=== PATIENT | female | born 1960 | race African-American/Black ===

== ENCOUNTER 2016-09-16 12:03 | Emergency (ER) | payer OTHER ==
--- NOTE | ~2016-09-16 | CR63 ---
[facility] A Service of [facility] & [facility] RADIOLOGY TEXT RESULTS PATIENT: ALIZE NEW LOCATION: [facility] : 64 UNIT #: [id number] AGE: [address]: Kathia Leary APRN SEX: F ORDER DR: [id number] [facility] [address] [facility]. [place], [place] [address] [id number] MR#: [id number] Acc #: [id number] NAME: ALIZE NEW : 1960 SEX: F STUDY DATE/TIME: 09/16/2016 13:31 UNIT: TX ROOM: STUDY DESCRIPTION: CR Chest 2 View Attending Physician: Kathia Leary A.P.R.N. Ordering Physician: Justin Acevedo M.D. Primary Care Physician: Es Martin A.P.R.N. MEDICAL IMAGING REPORT This report is preliminary unless electronic signature is present EXAM Chest 2 views 09/16/2016 1331 hours HISTORY 56-year-old woman with 2-week history of cough, shortness of air, running nose and swollen eyelids COMPARISON 03/27/2013 FINDINGS Upright PA and lateral views of the chest demonstrate normal heart size. The superior mediastinum is abnormal. There is abnormal large right paratracheal soft tissue density measuring approximately 7.7 x 4.2 cm with some deviation of the trachea from right to left new from 03/27/2013. Finding is concerning for mass or pathologic adenopathy. There is right hilar or soft tissue fullness likely an enlarged node measuring up to 2.5 cm. The lungs are clear and there are no effusions. IMPRESSION Abnormal chest film with new mediastinal widening and right paratracheal soft tissue mass or masses measuring up to 7.7 x 4.3 cm with enlarged right hilar node measuring 2.5 cm. Findings are concerning for a primary tumor mass or pathologic adenopathy. This is a clear change from 03/27/2013. Further evaluation with chest CT is recommended. Contrast administration would be helpful given the location of these findings. STAT * RESULT Dictated by... Jaylin Aragon M.D. [facility] A Service of [facility] & [facility] RADIOLOGY TEXT RESULTS PATIENT: ALIZE NEW LOCATION: [facility] : [birth year] UNIT #: [id number] AGE: [address]: Kathia Leary APRN SEX: F ORDER DR: THIS IS AN ELECTRONICALLY VERIFIED REPORT Jaylin Aragon M.D. at 09/16/2016 2:26 PM WILIAM/maciej TD: 09/16/2016 13:54 JOB #: [id number] MEDICAL IMAGING REPORT Page 1 of 1 COPY
[~2016-09-16 12:03] MED LIST: ACETAMINOPHEN PO; ALBUTEROL17 G1; ALBUTEROL17 GM INH; ASPIRIN PO; ASPIRINEC PO; AZITHROMYCIN250 MG PO; CELEXA PO; FERROUS SULFATE PO; FLEXERIL PO; FLEXERIL10 MG PO; FLONASE16 GM; IBUPROFEN800 MG PO; KEFLEX PO; KETOPROFEN PO; KLONOPIN; KLONOPIN PO; LORTAB 5/500 TA1 TA1 PO; LORTAB 7.5-5001 TAB PO; MEDROL DOSEPAK4 MG PO; MEDROL PO; MULTIVITAMIN W/1 TAB PO; ORUDIS75 M1 DOB; ORUDIS75 M1 PO; PREDNISONE PO; PRILOSEC PO; ROBITUSSIN-DM120 ML PO; TYLENOL #3 PO; ULTRAM PO; VICODIN 5/500 T1 TAB PO; WELLBUTRIN PO; ZITHROMAX PO; ZOLOFT PO
[2016-09-16 14:03] LABS: INFLUENZA A POS (NEG); INFLUENZA B NEG (NEG)
== END 2016-09-16 15:42 | disposition home or self-care (01) ==
LOC: CED 12:03 → CFTX 12:03
PROVIDERS: Nurse Practitioner
DX: J45.21 Mild intermittent asthma with (acute) exacerbation (principal); J10.1 Influenza due to other identified influenza virus with other respiratory manifestations; H10.9 Unspecified conjunctivitis; R91.8 Other nonspecific abnormal finding of lung field; E11.9 Type 2 diabetes mellitus without complications; I25.2 Old myocardial infarction; I10 Essential (primary) hypertension; F17.210 Nicotine dependence, cigarettes, uncomplicated; Z90.49 Acquired absence of other specified parts of digestive tract; Z88.0 Allergy status to penicillin
CPT/HCPCS: 71020; 82947; 87651; 87804; 99283

== ENCOUNTER → 2016-09-24 | Outpatient (CLI) | payer OTHER ==
[~2016-09-24] MED LIST changes: +DULOXETINE HCL60 M1 PO; +GABAPENTIN300 M2 PO; +LEXAPRO20 MG PO; +LIPITOR20 MG PO; +LOTREL 10-40 M1 EACH PO; +METFORMIN HCL500 M3 PO; +PROVENTIL INH0.5 ML NEB; +SEROQUEL XR200 MG PO
--- NOTE | ~2016-09-24 | CT55 ---
[facility] A Service of [facility] & [facility] RADIOLOGY TEXT RESULTS PATIENT: ALIZE [facility] [birth year] UNIT #: [id number] AGE: [address]: SHARLA WAITE APRN SEX: F ORDER DR: [id number] [facility] [address] [facility]. [place], [place] [address] [id number] O MR#: [id number] Acc #: [id number] NAME: ALIZE NEW : 1960 SEX: F STUDY DATE/TIME: 09/24/2016 9:34 UNIT: [facility] ROOM: STUDY DESCRIPTION: CT Chest W Con Attending Physician: Sharla Waite R.N. Referring Physician: Sharla Waite R.N. Ordering Physician: Sharla Waite R.N. Primary Care Physician: Sharla Waite R.N. MEDICAL IMAGING REPORT This report is preliminary unless electronic signature is present EXAM Chest CT with contrast. DATE OF STUDY 09/24/16 CLINICAL HISTORY Abnormal chest radiograph. PROCEDURE Axial contrast-enhanced chest CT with multiplanar reformats. This CT exam was performed with one or more of the following radiation dose reduction techniques: automatic exposure control, adjustment of mA and/or kV according to patient size, and iterative reconstruction. FINDINGS There is bulky mediastinal adenopathy. Severe nodes or clusters of nodes are seen, one in the anterior and right paratracheal region measuring 5.4 x 4 x 4 cm, anterior mediastinal mass measuring 5.3 x 4.7 x 3.4 cm, as well as a bulky subcarinal mass measuring 4.1 x 5.2 x 4.8 cm in addition to large right hilar and precarinal nodes. The adenopathy deforms, but does not occlude the right main and upper and lower lobe pulmonary arteries. There is relative sparing of the left hilum, though there is some mildly prominent AP window nodes. There is displacement of the aorta and great vessels, but no narrowing or encasement or aneurysmal dilatation. Minimal coronary atherosclerotic vascular calcifications are also seen. There is a small pericardial effusion. Images of the upper abdomen show no convincing retroperitoneal adenopathy and the liver and spleen, and visualized portions of the kidneys and pancreas are normal. [facility] A Service of [facility] & [facility] RADIOLOGY TEXT RESULTS PATIENT: ALIZE NEW LOCATION: [facility] : [birth year] UNIT #: [id number] AGE: [address]: SHARLA WAITE APRN SEX: F ORDER DR: There is no suspicious pulmonary nodule, though there is a small stellate pulmonary parenchymal density in the left upper lobe, on axial images measuring about 10 x 12 mm and about 10 mm in craniocaudal dimension. It is indeterminant, and was not present on the previous chest CT of 04/25/2007. There is spinal degenerative change, but no bone erosion or destruction. IMPRESSION Bulky right paratracheal, anterior mediastinal and precarinal and subcarinal and right hilar adenopathy. Findings are most suggestive of lymphoproliferative disease. No definite suspicious pulmonary nodule, though there is a small stellate indeterminant density in the left upper lobe anteriorly about 10 x 12 x 10 mm. Etiology unclear. Incidentally noted, small pericardial effusion, no upper abdominal retroperitoneal adenopathy. There are mildly prominent bilateral axillary lymph nodes, and the lymphoproliferative process is strongly favored. The mediastinal adenopathy could be easily biopsied with CT guidance. Dictated by... Jass Barboza M.D. THIS IS AN ELECTRONICALLY VERIFIED REPORT Jass Barboza M.D. at 09/28/2016 12:14 PM MAUREEN/jose TD: 09/24/2016 15:35 JOB #: [id number] MEDICAL IMAGING REPORT Page 1 of 1 COPY
[2016-09-24 10:50] LABS: POC - CREATININE 0.86 mg/dL (0.44-1.03); POC - GFR >60.0 mL/min (>60)
== END | disposition home or self-care (01) ==
LOC: CCAT 09-23 09:45
PROVIDERS: Nurse Practitioner
DX: R93.8 Abnormal findings on diagnostic imaging of other specified body structures (principal); R59.0 Localized enlarged lymph nodes; J98.4 Other disorders of lung
CPT/HCPCS: 71260; 82565; Q9967

== ENCOUNTER 2016-09-26 06:17 | Inpatient (IN) | payer OTHER ==
--- NOTE | ~2016-09-26 | CR72 ---
[facility] A Service of [facility] RADIOLOGY TEXT RESULTS PATIENT: ALIZE NEW LOCATION: [address] : [birth year] UNIT #: [id number] AGE: [address]: James Givens MD SEX: F ORDER DR: [id number] [place] [address] [facility]. [place], [place] [address] [id number] I MR#: [id number] Acc #: [id number] NAME: ALIZE NEW : 1960 SEX: F STUDY DATE/TIME: 10/01/2016 13:22 UNIT: [facility] ROOM: [facility] STUDY DESCRIPTION: CR Chest Single View Portable Attending Physician: James Givens M.D. Ordering Physician: Alta Diaz M.D. Primary Care Physician: Fanny Waite Aprn MEDICAL IMAGING REPORT This report is preliminary unless electronic signature is present EXAM Portable chest. HISTORY Shortness of breath for the past month accompanied by weakness. Mediastinal adenopathy. COMPARISON 09/26/2016 TECHNIQUE Single view of the chest was obtained. FINDINGS A single view of the chest again demonstrates extensive mediastinal adenopathy, greater to the right than to the left extending down to the right hilum. No new infiltrates are seen. There is minimal infiltrate at the right base, unchanged from previous examination. The vascular markings are normal. No progressive widening of the cardiac silhouette is seen. IMPRESSION Stable mediastinal adenopathy. Mild volume loss at the right lung base is unchanged. No new infiltrates are noted. Dictated by... Brian Bryant M.D. THIS IS AN ELECTRONICALLY VERIFIED REPORT Brian Bryant M.D. at 10/01/2016 4:37 PM RLF/tmw [facility] A Service [facility] RADIOLOGY TEXT RESULTS PATIENT: ALIZE NEW LOCATION: [address] : [birth year] UNIT #: [id number] AGE: [address]: James Givens MD SEX: F ORDER DR: TD: 10/01/2016 16:27 JOB #: [id number] MEDICAL IMAGING REPORT Page 1 of 1 COPY
--- NOTE | ~2016-09-26 | CO ---
Unit #: [id number] #: [id number] Patient: ALIZE NEW [id number] [place] [address] [facility]. [place], [place] [address] [id number] I MR#: [id number] NAME: ALIZE NEW ROOM: [facility] Age: 56 Sex: F Admission Date: 09/26/2016 : 1960 Attending Physician: Darlene Morillo M.D. Primary Care Physician: Fanny Waite Consultation Date: 10/05/2016 CONSULTATION REPORT REASON FOR CONSULTATION Followup. DISCUSSION Ms. Alize New is a 56-year-old female, seen in room 8, CCU-2 on 10/05/2016 at [facility]. The patient was receiving BiPAP, somewhat confused, unable to give coherent information. The patient had periods of agitation yesterday last night and sleep and received 2 doses of Xanax. Yesterday her Xanax was discontinued and changed to p.r.n. only, also stopped Seroquel which was 100 mg at bedtime. The patient was very drowsy yesterday. The patient's vital signs; pulse 97, blood pressure 155/77, oxygen saturation 97%. The patient and family would like to transfer her to [facility]. REVIEW OF SYSTEMS Complete review of systems unremarkable except as mentioned above. MENTAL STATUS EXAMINATION Vital signs; please see above. General appearance; the patient dressed in hospital attire, lying comfortably in bed, unable to give any coherent history. The patient has been breathing through BiPAP. Attention span and concentration, poor. Speech, orientation, mood and affect were unable to assess. Thought process, thought content, recent and remote memory were unable to assess. Language and fund of knowledge, unable to assess. Insight and judgment, impaired. DIAGNOSES Psychiatric: Major depressive disorder, recurrent, severe, F33.2; delirium, F05. ASSESSMENT/PLAN Advised to continue with current treatment at this time. Advised to resume Seroquel at a lower dosage 25 mg at bedtime and continue with p.r.n. Xanax. We will continue to follow. If needed, consider further adjustment of medication. Please feel free to call if any questions, telephone #[phone]. Dictated by... Kee Knowles/bob TD: 10/05/2016 23:23 Unit #: [id number] #: [id number] Patient: ALIZE NEW JOB #: [id number] CONSULTATION REPORT Page 1 of 1 X Sebas Horne MD X CONSULTATION REPORT
--- NOTE | ~2016-09-26 | CO ---
Unit #: [id number] #: [id number] Patient: ALIZE NEW [id number] [facility] [address] [facility]. [place], [place] [address] [id number] I MR#: [id number] NAME: ALIZE NEW ROOM: 474 Age: 56 Sex: F Admission Date: 09/26/2016 : 1960 Attending Physician: Darlene Morillo M.D. Primary Care Physician: Fanny Waite Consultation Date: 10/11/2016 CONSULTATION REPORT REASON FOR CONSULTATION Followup. DISCUSSION Ms. Alize Booth is a 56-year-old female, seen on 10/11/2016. The patient seen in room 474, bed 1 on 10/11/2016 at [facility]. The patient family was in the room. The patient was breathing through BiPAP, alert, awake. The patient seemed more sad, depressed, withdrawn. According to the family, they will try to wean her off from this and the hospitalist is involved. The patient slept good. No agitation. Compliant with medication. The patient's vital signs; temperature 97.5, pulse 76, respiratory rate 14, blood pressure 143/65, and oxygen saturation 90%. REVIEW OF SYSTEMS Complete review of system is unremarkable. MENTAL STATUS EXAMINATION General appearance; the patient dressed in hospital attire, breathing through BiPAP. Please see above for vital signs. Attention span and concentration, poor. Speech, slow. Oriented in self. Mood and affect, labile. Thought process, circumstantial. Thought content, guarded and paranoid, but denied any thoughts of harming self or others. Recent and remote memory, poor. Language, fair. Fund of knowledge, fair. Insight and judgment, fair to slightly impaired. DIAGNOSIS Psychiatric: Major depressive disorder, recurrent, severe, F33.2. ASSESSMENT/PLAN 1. Supportive psychotherapy and psychoeducation provided to the patient and family. 2. Educated about benefits and side effects of medication and course and prognosis of illness. 3. Advised to continue with current treatment and hospitalist is currently involved to make the patient comfortable. Please feel free to call if any questions, telephone #[phone]. Dictated by... SebasKee Napier/bob Unit #: [id number] #: [id number] Patient: ALIZE NEW TD: 10/12/2016 02:05 JOB #: [id number] CONSULTATION REPORT Page 1 of 1 X Sebas Horne MD CONSULTATION REPORT
--- NOTE | ~2016-09-26 | XA210 ---
[facility] A Service of [facility] & [facility] RADIOLOGY TEXT RESULTS PATIENT: ALIZE NEW LOCATION: [address] : [birth year] UNIT #: [id number] AGE: [address]: Darlene Morillo MD SEX: F ORDER DR: [id number] [place] [address] [address] [facility]. [place], [place] [address] [id number] I MR#: [id number] Acc #: [id number] NAME: ALIZE NEW : 1960 SEX: F STUDY DATE/TIME: 10/01/2016 10:21 UNIT: [facility] ROOM: [facility] STUDY DESCRIPTION: XA Venacavagram Superior Attending Physician: James Givens M.D. Ordering Physician: James Givens M.D. Primary Care Physician: Fanny Waite Aprn MEDICAL IMAGING REPORT This report is preliminary unless electronic signature is present PROCEDURE Attempted superior venacavagram and attempted superior vena cava stent placement. INDICATIONS 56-year-old female with history of facial and neck swelling and upper extremity swelling. 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 The superior vena cava stent placement was requested. The fluoroscopy time was 17.6 minutes. 2 fluoroscopic images were taken. Medications administered were 0.5 mg of IV Versed and 25 mcg of IV Fentanyl. Approximately 1 hour of conscious sedation time was directly supervised by Dr. Zamora and monitored by appropriately credentialed radiology nursing staff. PROCEDURE The risks, benefits, and alternatives of the procedure were discussed with the patient and informed consent was obtained. In the procedure room a time-out performed confirming correct patient and procedure. All elements of maximum sterile-barrier technique utilized according guidelines appropriate for the procedure. TECHNIQUE/FINDINGS Using ultrasound guidance the right common femoral vein was accessed using a 21-gauge micropuncture needle. Through this access and under fluoroscopic guidance using the modified Seldinger technique a 10-Yemeni sheath was advanced into the right common femoral vein. Next, through this access a angled glide catheter and Glidewire were advanced into the superior vena cava. There are multiple mediastinal masses distorting the upper portion of the superior vena cava. I was able to negotiate a [facility] A Service of [facility] RADIOLOGY TEXT RESULTS PATIENT: ALIZE NEW LOCATION: CICCU2 CICCU2-08 : 64 UNIT #: [id number] AGE: [address]: Darlene Morillo MD SEX: F ORDER DR: Glidewire into the upper portion of the superior vena cava but initially the glide catheter would not track across the Glidewire. Therefore the short 10-Yemeni sheath was removed and was exchanged for a longer sheath. The largest sheath available was 7-Yemeni. This sheath was advanced over the guidewire and all the way up to the lower portion of the SVC just below the level of the obstruction. Through the sheath I tried numerous times to manipulate a Glidewire and glide catheter past the obstruction using both the regular stiff Glidewire and the glidewire Advantage and multiple different catheters but was ultimately unsuccessful. I was able to advance a Glidewire into the right subclavian vein but the catheter would not cross the obstruction. The procedure was then terminated. The sheath was removed and hemostasis was achieved. The patient tolerated the procedure well without immediate complications. IMPRESSION Unsuccessful attempt at superior vena cava stent placement as described. I was unable to cross the obstruction in order to place a stent. Findings were discussed with Dr. Levi Tobias upon completion of the procedure. Dictated by... Catalino Zamora M.D. THIS IS AN ELECTRONICALLY VERIFIED REPORT Catalino Zamora M.D. at 10/02/2016 5:14 PM Art TD: 10/01/2016 17:38 JOB #: [id number] MEDICAL IMAGING REPORT Page 1 of 1 COPY
--- NOTE | ~2016-09-26 | CT2 ---
[facility] A Service [facility] RADIOLOGY TEXT RESULTS PATIENT: ALIZE NEW LOCATION: [facility] : [birth year] UNIT #: [id number] AGE: [address]: James Givens MD SEX: F ORDER DR: [id number] [place] [id number] [place], [place] [address] [id number] I MR#: [id number] Acc #: [id number] NAME: ALIZE NEW : 1960 SEX: F STUDY DATE/TIME: 09/27/2016 13:36 UNIT: [facility] ROOM: [facility] STUDY DESCRIPTION: CT Abd and Pelv W Cont Attending Physician: James Givens M.D. Ordering Physician: Enrique Valentin M.D., Ph.D. Primary Care Physician: Fanny Waite MEDICAL IMAGING REPORT This report is preliminary unless electronic signature is present EXAM CT abdomen and pelvis with contrast INDICATIONS Unexplained weight loss of 35 pounds in the past 4 to 5 months. Observation for malignancy. PROCEDURE Contrast-enhanced CT of the abdomen and pelvis The CT exam was performed with one or more of the following radiation dose reduction techniques: automatic exposure control, adjustment of mA and/or kV according to patient size, and iterative reconstruction. COMPARISON 12/27 related to FINDINGS Abdomen with contrast: Refer to chest CT from 09/24/2016 for thoracic findings. Liver, spleen, kidneys, adrenal glands unremarkable. Previous cholecystectomy. Moderate colonic stool burden. Appendix is normal. No abdominal adenopathy. Pelvis with contrast: No pelvic mass or adenopathy. No aggressive appearing bone lesion. IMPRESSION 1. No acute findings. 2. No evidence for abdominal or pelvic malignancy or adenopathy. [facility] A Service of [facility] RADIOLOGY TEXT RESULTS PATIENT: ALIZE NEW LOCATION: [facility] : 64 UNIT #: [id number] AGE: [address]: James Givens MD SEX: F ORDER DR: 3. Refer to chest CT from 09/24/2016 for thoracic findings. Dictated by... Jf Wilcox M.D. THIS IS AN ELECTRONICALLY VERIFIED REPORT Jf Wilcox M.D. at 09/28/2016 9:54 PM EARL/luis TD: 09/28/2016 08:03 JOB #: [id number] MEDICAL IMAGING REPORT Page 1 of 1 COPY
--- NOTE | ~2016-09-26 | CR72 ---
[facility] A Service of [facility] & [facility] RADIOLOGY TEXT RESULTS PATIENT: ALIZE NEW LOCATION: [place] [address] : [birth year] UNIT #: [id number] AGE: [address]: Darlene Morillo MD SEX: F ORDER DR: [id number] [facility] [address] [facility]. [place], [place] [address] [id number] I MR#: [id number] Acc #: [id number] NAME: ALIZE NEW : 1960 SEX: F STUDY DATE/TIME: 10/07/2016 7:40 UNIT: [facility] ROOM: [facility] STUDY DESCRIPTION: CR Chest Single View Portable Attending Physician: Darlene Morillo M.D. Ordering Physician: Darlene Morillo M.D. Primary Care Physician: Fanny Waite Aprn MEDICAL IMAGING REPORT This report is preliminary unless electronic signature is present EXAM Portable chest HISTORY Shortness of breath, right-sided pneumonia. FINDINGS An AP portable view is obtained. Heart size is stable. Left lung is clear. There is a Wallstent endoprosthesis in the superior vena cava. The right-sided pleural drain has been removed in the interim. There is no pneumothorax. There continues to be pleural fluid and volume loss in the right base albeit decreased. CONCLUSION 1. Interim removal of the right-sided pleural drain. No pneumothorax. 2. Decrease in right-sided pleural fluid and right basilar atelectasis compared with the patient's last study. 3. The Wallstent endoprosthesis appears in satisfactory position. Dictated by... Doug Knox M.D. THIS IS AN ELECTRONICALLY VERIFIED REPORT Doug Knox M.D. at 10/10/2016 9:17 AM LEI/eliz TD: 10/07/2016 08:40 JOB #: [id number] MEDICAL IMAGING REPORT Page 1 of 1 COPY
--- NOTE | ~2016-09-26 | CO ---
Unit #: [id number] #: [id number] Patient: ALIZE NEW [id number] [place], [place] [address] [id number] I MR#: [id number] NAME: ALIZE NEW ROOM: [facility] Age: 56 Sex: F Admission Date: 09/26/2016 : 1960 Attending Physician: Darlene Morillo M.D. Primary Care Physician: Fanny Waite Consultation Date: 10/03/2016 CONSULTATION REPORT REASON FOR CONSULTATION Depression and anxiety. HISTORY OF PRESENT ILLNESS Ms. Alize New is a 56-year-old female, seen on 10/03/2016 in CCU-2, bed 8 at [facility]. The patient dressed in hospital attire, receiving oxygen through nasal cannula, Oxymizer. The patient was pleasant, cooperative, able to answer questions appropriately. Reported having problem with depression and anxiety, but denied any suicidal or homicidal ideation. The patient has a good support system, recently diagnosed with cancer. The patient was admitted with acute respiratory failure and pneumonia. The patient was started on Lexapro yesterday and received Ativan p.r.n. Still having some periods of anxiety and agitation. PAST PSYCHIATRIC HISTORY Unremarkable for any history of any depression or anxiety, or any suicide attempt, or any inpatient or outpatient treatment. MEDICAL HISTORY Remarkable for history of acute respiratory failure, pneumonia, conjunctivitis, lymphadenopathy, left upper lobe mass, sepsis, COPD, hypertension, gastric ulcer, and remote history of polysubstance abuse. MEDICATION HISTORY The patient was started on Lexapro today at 10 mg daily. The patient is also on hydralazine, Zestril, Colace, MiraLax, Zofran, Solu-Medrol 80 mg q.8 hours, Xanax 0.5 mg t.i.d., Vistaril 25 mg t.i.d. Please refer to MAR for detail. FAMILY HISTORY AND SOCIAL HISTORY The patient has a good support system from family. No history of abuse. No history of any substance abuse recently. REVIEW OF SYSTEMS A complete review of systems is unremarkable. MENTAL STATUS EXAMINATION The patient's vital signs; pulse 107, respirations 12, blood pressure 158/74, and oxygen saturation 100%. General appearance; the patient dressed casually, lying comfortably in propped up position in bed, receiving oxygen through nasal cannula. Attention span and concentration, fair. Speech; regular rate, slow in volume and rate. Oriented in time, place, and person. Mood and affect; sad and dysphoric. Thought process, Unit #: [id number] #: [id number] Patient: ALIZE NEW coherent. Thought content; the patient denied any thoughts of harming self or others or any psychotic symptom. Recent and remote memory, fair. Language, intact. Fund of knowledge, fair. Insight and judgment, fair to slightly impaired. DIAGNOSES Psychiatric: Major depressive disorder, recurrent, severe, F33.2. Secondary diagnosis: Deferred. Medical diagnosis: Please refer to H and P. Stressors: Psychosocial stressor. ASSESSMENT AND PLAN 1. Supportive psychotherapy and psychoeducation provided to the patient. 2. Educated about benefits and side effects of medication and course and prognosis of illness. 3. Advised to continue with current medication. Agree at this time to continue with Lexapro, Vistaril, and Xanax. If needed, consider low dose of Zyprexa if the patient has those episodes of agitation. We will continue to follow. Please feel free to call if any questions, telephone #[phone]. Dictated by... Kee Knowles/bob TD: 10/04/2016 15:52 JOB #: [id number] CONSULTATION REPORT Page 1 of 1 X Sebas Horne MD CONSULTATION REPORT
--- NOTE | ~2016-09-26 | CT114 ---
[facility] A Service of [facility] RADIOLOGY TEXT RESULTS PATIENT: ALIZE NEW LOCATION: [facility] [id number] : [birth year] UNIT #: [id number] AGE: [address]: James Givens MD SEX: F ORDER DR: [id number] [facility] [address] [facility]. [place], [place] [address] [id number] MR#: [id number] Acc #: [id number] NAME: ALIZE NEW : 1960 SEX: F STUDY DATE/TIME: 09/27/2016 13:36 UNIT: [facility] ROOM: [facility] STUDY DESCRIPTION: CT Soft Tissue Neck W Cont Attending Physician: James Givens M.D. Ordering Physician: Enrique Valentin M.D., Ph.D. Primary Care Physician: Fanny Waite MEDICAL IMAGING REPORT This report is preliminary unless electronic signature is present EXAM CT neck soft tissues with contrast INDICATIONS Unexplained weight loss of 35 pounds in the past 4 to 5 months. Suspicion for malignancy. PROCEDURE Contrast-enhanced CT of the neck utilizing soft tissue technique. The CT exam was performed with one or more of the following radiation dose reduction techniques: automatic exposure control, adjustment of mA and/or kV according to patient size, and iterative reconstruction. COMPARISON: Chest CT from 09/24/2016 FINDINGS Scattered small to mildly prominent bilateral cervical chain lymph nodes. Index posterior left cervical chain node measures up to 1.3 cm. Parotid glands, submandibular glands unremarkable. There are a few tiny nodules in the thyroid gland. No appreciable abnormal mass effect. Abnormally prominent lymph nodes in the right supraclavicular region with an indexed node measuring up to 1.5 cm. Partially included large mediastinal mass in the right paratracheal region. There is a nonspecific lucency in the C3 vertebral body measuring up to 1.0 cm. Multilevel degenerative change in the cervical spine. IMPRESSION 1. Abnormally prominent right supraclavicular lymph nodes. There is also partially included large right paratracheal mediastinal mass. Refer the chest CT from 09/24/2016 for further details. STS. [facility] A Service of [facility] & [facility] RADIOLOGY TEXT RESULTS PATIENT: ALIZE NEW LOCATION: [facility] 57- : [birth year] UNIT #: [id number] AGE: [address]: James Givens MD SEX: F ORDER DR: 2. Scattered small to mildly prominent lymph nodes in both cervical chains are nonspecific. 3. Lucent lesion in the C3 vertebral body. Indeterminate, could represent metastatic disease or a benign lesion. 4. Consider PET scan for evaluation of full extent of malignant involvement. Dictated by... Jf Wilcox M.D. THIS IS AN ELECTRONICALLY VERIFIED REPORT Jf Wilcox M.D. at 09/28/2016 9:54 PM EARL/luis TD: 09/28/2016 08:07 JOB #: [id number] MEDICAL IMAGING REPORT Page 1 of 1 COPY
--- NOTE | ~2016-09-26 | FU ---
[facility] Nutrition Therapy DATE: 10/08/16 Patient: ALIZE SHARPE NEW Physician: JACQUIE [facility] Room/Bed: [address], Zip: [place] [address] Admit Date: 09/26/16 Date of : [birth year] Height: 4 11 Weight: 130 59 NUTRITION MONITORING/FOLLOW-UP: Reason: PT SEEN FOR FOLLOW-UP Assessment: PT ON CONTINUOUS BIPAP, REGULAR DIET. HOSPICE HAS BEEN CONSULTED, FAMILY HAS NOT MADE DECISION YET. PER RN AND CHART, PT NOTED TO HAVE [facility] [employer] APPETITE. RD TO REMAIN AVAILABLE UPON REQUEST. MEDICATIONS AND LABS REVIEWED. Intervention: 1. REGULAR DIET 2. ENSURE BID Monitoring, Evaluation and Goals: SEE PREVIOUS GOALS Recommendations: 1. ENCOURAGE PO INTAKE. CONSULT RD IF NEEDED. RD WILL F/U PER PROTOCOL. Respectfully, MAN FINN, TUBING SUPERVISOR ELIF BAZAN MS, RD, LD Food and Nutritional Services [facility] cc: client file
--- NOTE | ~2016-09-26 | CO ---
Unit #: [id number] #: [id number] Patient: ALIZE NEW [id number] [facility] [address] [facility]. [place], [place] [address] [id number] I MR#: [id number] NAME: ALIZE NEW ROOM: [facility] Age: 56 Sex: F Admission Date: 09/26/2016 : 1960 Attending Physician: Darlene Morillo M.D. Primary Care Physician: Fanny Waite Aprn Consultation Date: 10/06/2016 CONSULTATION REPORT REASON FOR CONSULTATION Followup. DISCUSSION Ms. Dowell is a 56-year-old female, seen in room CCU-2, bed 8 on 10/06/2016 at [facility]. The patient was receiving breathing through BiPAP machine. The patient reports able to sleep good, cooperative, still sad, depressed. Mood was irritable. The patient is tolerating medication fairly well, slept good with Seroquel 25 mg at bedtime. No agitation. The patient did not require any p.r.n. medication last night. The patient's vital signs; temperature 97.8, pulse 100, blood pressure 111/68, oxygen saturation 98%. The patient's history obtained from the nursing staff. Chart reviewed. The patient denied any suicidal or homicidal ideation. REVIEW OF SYSTEMS Complete review of systems unremarkable except as mentioned above. MENTAL STATUS EXAMINATION Vital signs; please see above. General appearance; the patient dressed in hospital attire, lying in a propped up position. Breathing through BiPAP. Attention span and concentration, poor. Speech, slow. Orientation in self and place. Mood and affect, sad and depressed. Thought process, circumstantial. Thought content, guarded. Denied any thoughts of harming self or others. Denied any hallucination. Recent and remote memory, fair to slightly impaired. Language, fair. Fund of knowledge, fair to slightly impaired. Insight and judgment, fair to slightly impaired. DIAGNOSES Psychiatric: Major depressive disorder, recurrent, severe, F33.2. ASSESSMENT AND PLAN Advised at this time to continue with current treatment. Advised to continue with Seroquel 25 mg at bedtime and continue with p.r.n. Xanax. If needed, consider further adjustment of medication. Please feel free to call if any questions, telephone #[phone]. Dictated by... Kee Knowles/bob TD: 10/08/2016 03:45 Unit #: [id number] #: [id number] Patient: ALIZE NEW JOB #: [id number] CONSULTATION REPORT Page 1 of 1 X Sebas Horne MD X CONSULTATION REPORT
--- NOTE | ~2016-09-26 | DS ---
Unit #: [id number] #: [id number] Patient: ALIZE NEW [id number] [address] [address] [id number] I MR#: [id number] NAME: ALIZE NEW ROOM: [facility] Age: 56 Sex: F Admission Date: 09/26/2016 : 1960 Discharge Date: 10/13/2016 Attending Physician: Darlene Morillo M.D. Primary Care Physician: Fanny Waite DISCHARGE SUMMARY REVISED REPORT ADDENDUM HOSPITAL COURSE Patient has remained in the hospital under comfort measures while family decided their course of action. There were several discussions regarding continuation of BiPAP. At this time, the patient would like to continue BiPAP on traditional BiPAP settings to which she was changed yesterday. Today, she is increasingly somnolent and confused. The plan is for inpatient hospice when bed is available. Upon discussion with daughterMarcela, today, the plan is if patient asks for BiPAP to reinitiate, and she does not, simply to leave it off. DISCHARGE MEDICATIONS 1. Morphine 4 mg IV q.4 hours scheduled with 2-4 mg IV q.1 hour p.r.n. 2. Ativan 1 mg IV q.4 hours scheduled with 1 mg IV q.1 hour p.r.n. 3. Robinul 0.2 mg q.1 hour p.r.n. DISCHARGE INSTRUCTIONS Patient can follow a regular diet if she so wishes. FOLLOWUP Further care per hospice. report type revised Dictated by... Darlene Morillo M.D. ART/johnathan TD: 10/12/2016 16:43 JOB #: [id number] Unit #: [id number] #: [id number] Patient: ALIZE NEW DISCHARGE SUMMARY Page 1 of 1 X Darlene Morillo MD X DISCHARGE SUMMARY
--- NOTE | ~2016-09-26 | CO ---
Unit #: [id number] #: [id number] Patient: ALIZE NEW [id number] [address] [address] [id number] I MR#: [id number] NAME: ALIZE NEW ROOM: [facility] Age: 56 Sex: F Admission Date: 09/26/2016 : 1960 Attending Physician: Darlene Morillo M.D. Primary Care Physician: Fanny Waite Aprn Consultation Date: 10/06/2016 CONSULTATION REPORT REASON FOR CONSULTATION Followup. DISCUSSION Ms. Alize New is a 56-year-old female. The patient interviewed, chart reviewed, and obtained information from nursing staff. The patient was having periods of agitation last night and received 2 p.r.n. dosage of Xanax. The patient was started on Seroquel 25 mg at bedtime, which was helpful. The patient is currently on Solu-Medrol 40 mg q.8 hourly and breathing through BiPAP. Still periods of some agitation, but denied any thoughts of harming self or others. Chart reviewed. Obtained information from nursing staff. REVIEW OF SYSTEMS Complete review of systems unremarkable. MENTAL STATUS EXAMINATION Vital signs; pulse 109, respirations 19, blood pressure 151/66, oxygen saturations 97%. General appearance, the patient dressed casually, lying in a propped up position, receiving breathing through BiPAP. Attention span and concentration, poor. Speech, slow. Oriented in self and place. Mood and affect, sad, dysphoric, flat. Thought process, circumstantial. Thought content, guarded. Denied any thoughts of harming self or others. Recent and remote memory, poor. Language, fair. Fund of knowledge, fair to poor. Insight and judgment, fair to poor. DIAGNOSES Psychiatric: Major depressive disorder, recurrent, severe, F33.2. ASSESSMENT AND PLAN 1. Supportive psychotherapy and psychoeducation provided to the patient. 2. Advised to continue with current medication. If needed, consider further adjustment of medication. The patient is receiving Seroquel 25 mg scheduled and Xanax p.r.n. for agitation and severe anxiety. We will continue to follow. Please feel free to call if any questions, telephone #[phone]. Dictated by... Kee Knowles/bob TD: 10/08/2016 03:53 Unit #: [id number] #: [id number] Patient: ALIZE NEW JOB #: [id number] CONSULTATION REPORT Page 1 of 1 X Sebas Horne MD X CONSULTATION REPORT
--- NOTE | ~2016-09-26 | A ---
[facility] Nutrition Therapy DATE: 10/04/16 Patient: ALIZE ANNEMARIE NEW Physician: JACQUIE Address: [address] [place] [address] Room/Bed: [address], Zip: [place] [address] Admit Date: 09/26/16 Date of : [birth year] Height: 4 11 Weight: 132 60 NUTRITIONAL ASSESSMENT: REASON: SEEING PT FOR LOS + RN REPORT RE: POOR PO INTAKE. DX: ACUTE RESPIRATORY FAILURE, PNA PMH: COPD, GERD, DEPRESSION, ANXIETY, HTN, LUNG CANCER Anthropometrics: 4'11", WT: 132# (60 KG) BMI 26 Labs: GLU 153 CL- 94 CREAT 0.5 Meds: SOLU-MEDROL, NACL, XANAX, MAXIPIME, LEXAPRO, ZESTRIL, COLACE, MIRALAX, ZOFRAN, PROTONIX I/O & Bowel function: 1640/2126. LAST BM 09/29 Skin Integrity: WNL Assessment: SEEING PT FOR LOS. CHART REVIEWED, EVENTS NOTED. RN REPORTED THAT PT HAS HAD POOR APPETITE OVER LAST FEW DAYS AND CONSUMED 0% OF HER BREAKFAST THIS MORNING. PT IS CURRENTLY RECEIVING REGULAR DIET. RD ATTEMPTED TO SPEAK WITH PT AT BEDSIDE. PT WAS VERY LETHARGIC AND RESPONDED WITH SMALL PHRASES. RD OFFERED TO ORDER ENSURE SUPPLEMENTS AND PT AGREED. PER PT, SHE HAS LOST SOME WEIGHT OVER LAST FEW MONTHS, EXACT AMOUNT UNKNOWN. RD WILL REMAIN AVAILABLE. Dx: INADEQUATE ORAL INTAKE R/T CURRENT CONDITION AND POOR APPETITE AEB <50% OF MEALS TOLERATED, PER RN REPORT. Intervention: 1. REGULAR DIET 2. ENSURE CHOCOLATE BID. Monitoring, Evaluation and Goals: 1. ORAL INTAKE; CONSUME >50% OF ALL MEALS AND SUPPLEMENTS. 2. WEIGHTS; PROMOTE MAINTAINENCE OF HEALTHY WEIGHT 3. LABS; WNL 4. GI; PROMOTE REGULAR GI FUNCTION (LAST BM 09/29/16) Recommendations: 1. PLEASE ORDER ENSURE CHOCOLATE BID. 2. ENCOURAGE ADEQUATE PO INTAKE. [facility] Nutrition Therapy DATE: 10/04/16 Patient: ALIZE ANNEMARIE NEW Physician: JACQUIE Address: [address] [place] [address] Room/Bed: [address], Zip: [place] [address] Admit Date: 09/26/16 Date of : [birth year] Height: 4 11 Weight: 132 [address] RD WILL F/U PER PROTOCOL. PT IS AT MODERATE NUTRITIONAL RISK. Respectfully, MAN FINN, SCHOOL SECRETARY ELIF BAZAN MS, RD, LD Food and Nutritional Services [facility] cc: client file
--- NOTE | ~2016-09-26 | CO ---
Unit #: [id number] #: [id number] Patient: ALIZE NEW [id number] [address] [address] [id number] I MR#: [id number] NAME: ALIZE NEW ROOM: [facility] Age: 56 Sex: F Admission Date: 09/26/2016 : 1960 Attending Physician: Darlene Morillo M.D. Primary Care Physician: Fanny Waite Requesting Physician: Alta Diaz M.D. CONSULTATION REPORT REASON FOR CONSULT Chest tube management. HISTORY OF PRESENT ILLNESS Ms. Alize New is a 56-year-old female who is admitted to the emergency room with acute hypoxic respiratory failure and bilateral upper extremity edema and facial edema. She has history of COPD, anxiety, depression and hypertension. Patient reports having an emergency room visit on 09/16/16, for which she underwent a CT scan, which revealed extensive lymphadenopathy and possible SVC syndrome. She was going to be evaluated as an outpatient; however, began to have edema in both upper extremities and facial edema and returned back to the emergency room with trouble breathing. She was admitted. She underwent SVC wall stent placement on 10/01/16 under the direction of Dr. Knox. She underwent a biopsy on September 29, 2016 under the direction of Dr. Catalino Zamora, which proved positive after immunosuppressive stains for neuroendocrine carcinoma, stage III. During her admission this morning, she developed a right pneumothorax. Dr. Diaz was consulted for placement of chest tube. He placed a chest tube, and Dr. Dallas has been consulted to follow the chest tube for management. PAST MEDICAL HISTORY 1. COPD. 2. History of illicit drug use, which was methamphetamine. 3. SVC syndrome. 4. Thrombocytopenia with a HIT panel pending. 5. Delirium. 6. Hypertension. 7. Acute hypercarbic and hypoxic respiratory failure. PAST SURGICAL HISTORY The patient's surgeries in the past include a cholecystectomy, tonsillectomy and an SVC stent placement. 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 She is a Gnosticism but yet has signed a consent form on the chart that she will receive blood. Her daughter, Brionna, is the contact center team lead for information regarding patient. patient is currently on BiPAP during the interview. REVIEW OF SYSTEMS Unable to obtain related to BiPAP. Unit #: [id number] #: [id number] Patient: ALIZE NEW PHYSICAL EXAMINATION VITAL SIGNS: Temperature is 98.9, heart rate 77, respiratory rate 20, blood pressure 162/95. GENERAL APPEARANCE: The patient is awake and responds to her name. Family at bedside. NEUROLOGIC/PSYCHIATRIC: She has no gross neuro deficits noted. She is able to move all extremities and nod her head appropriately. HEENT: She is normocephalic. Her facial edema is receding. EXTREMITIES: Warm and dry. She does have some upper extremity edema bilaterally. Otherwise, her pulses are intact. There is no clubbing and no ulcer. NECK: Her neck is supple. There is a palpable thyroid. There is no palpable lymphadenopathy. RESPIRATORY: Lungs bilaterally have rhonchi. No rales or wheezes. CARDIOVASCULAR: S1, S2 without rub, without murmur. No S3 or S4 and no peripheral edema in the lower extremities. ABDOMEN: Her abdomen is large, round, soft. Bowel sounds are positive. Nontender. No hepatosplenomegaly. DIAGNOSTICS LABORATORY: BUN 15, creatinine 0.4, sodium 135, potassium 3.8. Platelets 184, WBC 28.3, hemoglobin 12.1, hematocrit 38.4. IMPRESSION 1. Right pneumothorax status post chest tube placement by Dr. Diaz. 2. Neuroendocrine carcinoma, aggressive in type, cared for by Dr. Valentin and Dr. Tobias. 3. SVC syndrome status post wall stent placement on 10/01/16 under the direction of Dr. Knox. PLAN We will monitor her chest tube. At present there is no air leak and minimal drainage. There is a tiny residual apical pneumothorax laterally following chest tube placement. Will order chest x-ray for tomorrow morning. Dictated by... Gina No A.P.R.N. for Kee DUFF/dereje TD: 10/05/2016 12:20 JOB #: [id number] CONSULTATION REPORT Page 1 of 1 X Gina No APRN CONSULTATION REPORT
--- NOTE | ~2016-09-26 | HP ---
Unit #: [id number] #: [id number] Patient: ALIZE NEW [id number] [address] [facility]. [place], [place] [address] [id number] I MR#: [id number] NAME: ALIZE NEW ROOM: [address] Age: 56 Sex: F Admission Date: 09/26/2016 : 1960 Attending Physician: Vane Malin M.D. Primary Care Physician: Fanny Waite Aprn HISTORY AND PHYSICAL CHIEF COMPLAINT Shortness of air. HISTORY OF PRESENT ILLNESS The patient is a 56-year-old female with a past medical history of COPD with continued tobacco abuse, depression, anxiety, hypertension, gastric ulcer, remote polysubstance abuse who presented to the emergency department for evaluation of the above. The patient states that she has had at least a ten day history of increasing shortness of breath and initially productive cough. She states that she has had chills and undocumented fever. She also reports chest tightness in association with cough. She has had drainage from her eyes. She has had nausea and vomiting. She reports constipation. She states that she has lost about 35 pounds over the past 4-5 months. The patient was seen in the emergency department at [facility] on 09/16/2016. She was told that she had a lung mass and to followup with her primary care physician. She apparently saw her PCP and a CT of the chest with contrast was ordered. CT from 09/24/2016 showed bulky paratracheal, mediastinal, precarinal, subcarinal, right hilar adenopathy concerning for lymphoproliferative disease. A lung nodule was also noted. The patient returns today for persistent symptoms. Temperature was 98.7, pulse 109, respirations 22, oxygen saturation initially 95% on 2 L; however, oxygen saturation dropped to 86% during the course of her evaluation in the emergency department. A chest x-ray was done and showed bibasilar infiltrates. She was given Levaquin, as well as Solu-Medrol in the emergency department. She is being admitted to [facility] for evaluation and further treatment. PAST MEDICAL HISTORY 1. Admission to [facility] 12/28/2007 through 01/01/2008 for a cholecystitis. She underwent cholecystectomy during that admission. 2. Hypertension. 3. Anxiety and depression. 4. Gastric ulcers. 5. COPD not on home oxygen, not followed by a butt trimmer. 6. History of myocardial infarction. The patient denies ever having a cardiac catheterization. She did have a stress test in 04/2007 that was read as "probably normal." Ejection fraction was 56%. Unit #: [id number] #: [id number] Patient: ALIZE NEW PAST SURGICAL HISTORY 1. Cholecystectomy. 2. Tonsillectomy. SOCIAL HISTORY The patient smokes a half pack of cigarettes daily. She reports occasional alcohol use, as well as occasional marijuana use. The patient is a [employer]. She does not want any blood products. Her code status is a Do Not Resuscitated. REVIEW OF RECORDS Indicates that the patient's drug screen was positive for cocaine back in 12/2007. She is unemployed. FAMILY HISTORY Notable for her mother being an alcoholic. Her maternal grandmother had colon cancer. Her dad had an unknown malignancy. ALLERGIES Penicillin. HOME MEDICATIONS There is not currently a med rec. Home medications will need to be reviewed and verified. REVIEW OF SYSTEMS A complete review of systems is negative except as indicated in the HPI. PHYSICAL EXAMINATION VITAL SIGNS: Temperature is 98.7, pulse 109, respirations 22, blood pressure 130/80, oxygen saturation 95% on 2 L, dropped to 86% during the course of her evaluation. GENERAL: The patient is an -[place] female who is awake and alert, in no acute distress. HEENT: The head is atraumatic. There is purulent drainage from the right eye with facial swelling. NECK: The patient does have cervical lymphadenopathy. Trachea is midline. CARDIOVASCULAR: Regular rate and rhythm. LUNGS: Demonstrates scattered wheezes and rhonchi. Breathing is not labored with conversation. ABDOMEN: Soft and nontender with bowel sounds present in all four quadrants. EXTREMITIES: Nontender with no pedal edema. NEUROLOGIC: The patient is awake and alert. She follows commands. PSYCH: Mood and affect are normal. The patient is cooperative. SKIN: Skin of examined areas is warm and dry. DIAGNOSTIC STUDIES CARDIOLOGY STUDIES: EKG showed sinus tachycardia with a rate of 102 BPM. IMAGING STUDIES: Chest x-ray shows bibasilar infiltrates. CT of the chest with contrast from 09/24/2016 showed bulky right paratracheal, anterior mediastinal, precarinal, subcarinal and right hilar adenopathy concerning for lymphoproliferative disease. A small stellate indeterminant density in the left upper lobe was also noted, as well as a small pericardial effusion. Bilateral Unit #: [id number] #: [id number] Patient: ALIZE NEW axillary lymph nodes are mildly prominent. LABORATORY STUDIES: Complete blood count notable for white blood cell count of 11.4. Troponin is less than 0.05. Comprehensive metabolic panel notable for chloride of 97, BNP is 6, lactic acid 1.4. ASSESSMENT The patient is a 56-year-old female with: 1. Acute respiratory failure, hypoxic. 2. Pneumonia, community acquired. 3. Conjunctivitis. 4. Lymphadenopathy concerning for lymphoproliferative disease. 5. Left upper lobe mass. 6. Sepsis with an initial lactic acid of 1.4. 7. COPD with continued tobacco abuse. 8. Depression and anxiety. 9. Hypertension. 10. Gastric ulcer. 11. Remote polysubstance abuse. PLAN 1. Admit to an intermediate level. 2. Healthy heart diet. 3. Supplemental oxygen. 4. Blood cultures x2. 5. Sputum culture and sensitivity. 6. Procalcitonin level. 7. Levaquin IV for community acquired pneumonia pending further workup. 8. DuoNeb q.4 hours. 9. Solu-Medrol 80 mg IV q.12 hours. 10. Serial cardiac enzymes. 11. Sepsis protocol with repeat lactic acid. 12. Normal saline at 75 mL an hour. 13. Vigamox ophthalmic one drop in eyes t.i.d. 14. Check urinalysis and urine tox screen. 15. Consult Dr. Valentin regarding lymphadenopathy, concerning for lymphoproliferative disease. 16. Repeat labs in the morning. 17. SCDs for DVT prophylaxis. 18. Protonix for GI prophylaxis since the patient will be on Solu-Medrol. 19. Additional workup and consultants based on above. 20. Regarding code status, the patient is a Do Not Resuscitate. Dictated by Kee Ramires TD: 09/26/2016 14:14 JOB #: [id number] Unit #: [id number] #: [id number] Patient: ALIZE NEWRICIA HISTORY AND PHYSICAL Page 1 of 1 X Vane Malin MD X HISTORY AND PHYSICAL
--- NOTE | ~2016-09-26 | EKG ---
PATIENT: ALIZE NEW UNIT #: [id number] Ventricular Rate: 102 BPM Atrial Rate: 102 BPM P-R Interval: 118 ms QRS Duration: 68 ms Q-T Interval: 352 ms QTC Calculation(Bezet): 458 ms P Jackson: 73 degrees Calculated R Jackson: 95 degrees Calculated T Jackson: 80 degrees Diagnosis Line: Sinus tachycardia Diagnosis Line: Rightward axis Diagnosis Line: Borderline ECG Diagnosis Line: When compared with ECG of 27-MAR-2013 21:07, Diagnosis Line: No significant change was found Diagnosis Line: Confirmed by BONIFACIO TAM MD ([id number]) on Diagnosis Line: 09/28/2016 3:16:04 PM INTERPRETING MD: ANEL PENA
--- NOTE | ~2016-09-26 | TOC ---
Unit #: [id number] #: [id number] Patient: ALIZE NEW [id number] [address] [address] [id number] I MR#: [id number] NAME: ALIZE NEW ROOM: [facility] Age: 56 Sex: F Admission Date: 09/26/2016 : 1960 Attending Physician: Darlene Morillo M.D. Primary Care Physician: Fanny Waite TRANSFER OF CARE SUMMARY ADDENDUM PRINCIPAL DIAGNOSES 1. Acute hypercapnic/hypoxic respiratory failure. 2. Newly diagnosed small cell lung cancer, aggressive, stage 3B. 3. Severe pulmonary hypertension. 4. Acute exacerbation of chronic obstructive pulmonary disease. 5. Left upper lobe healthcare-associated pneumonia. 6. Superior vena cava syndrome, status post stenting. 7. Thrombocytopenia. 8. Normocytic anemia. 9. Hypertension. 10. Right pleural effusion. PROCEDURES 1. SVC stenting. 2. CT scan of the chest revealing a left upper lobe infiltrate. There is significant diffuse supraclavicular mediastinal adenopathy. 3. Left upper extremity venous Doppler which is negative for DVT. HOSPITAL COURSE Since last dictation, following SVC stenting, unfortunately patient has had respiratory decline. Initially, she was maintained on BiPAP p.r.n. only but over the course of the last 48 hours has required almost continuous BiPAP therapy for maintenance of oxygen saturation. She has also required increased oxygen support on the BiPAP itself. Discussions regarding goals of care have been had throughout the week with the patient and her daughters, particularly given the fact that her underlying malignancy cannot be adequately treated with her declining respiratory status. At this point, the patient is opting for hospice and comfort measures only. Still awaiting hospice evaluation later today with discharge plans as determined appropriate by them and in agreement with patient and family. DISCHARGE CONDITION Actively dying. DISCHARGE STATUS Discharge per hospice recommendations. DISCHARGE MEDICATIONS 1. Roxanol 20 mg/mL 0.25 mL sublingual q.1 hour p.r.n. for pain or shortness of breath. 2. Ativan Intensol 2 mg/mL, 0.25 mL sublingual q.1 hour p.r.n. for Unit #: [id number] #: [id number] Patient: ALIZE NEW anxiety. DISCHARGE INSTRUCTIONS The patient is to follow a regular diet if she so wishes. Follow up per hospice care. Dictated by... Darlene Morillo M.D. ART/leda TD: 10/09/2016 13:42 JOB #: [id number] TRANSFER OF CARE SUMMARY Page 1 of 1 X Darlene Morillo MD X TRANSFER OF CARE SUMMARY
--- NOTE | ~2016-09-26 | CO ---
Unit #: [id number] #: [id number] Patient: ALIZE NEW [id number] [address] [place], [place] [address] [id number] I MR#: [id number] NAME: ALIZE NEW ROOM: 572 Age: 56 Sex: F Admission Date: 09/26/2016 : 1960 Attending Physician: James Givens M.D. Primary Care Physician: Fanny Waite Consultation Date: 09/27/2016 CONSULTATION REPORT HISTORY OF PRESENT ILLNESS The patient is a very pleasant 56-year-old lady with history of COPD and tobacco abuse, who has been admitted with 10-day history of increasing shortness of breath and productive cough. She was seen in the emergency room at [facility] on 09/16/2016, and she was found to have bulky lymphadenopathy on CT scan of the chest. There was extensive paratracheal mediastinal precarinal and subcarinal lymphadenopathy. The patient was supposed to follow up with the primary care physician, but now she is admitted with progressive symptoms with progressive shortness of air. She is currently on oxygen supplementation. She is also getting bronchodilator therapy. The patient has facial swelling as well as visible bilateral preauricular lymphadenopathy as well as cervical and supraclavicular swelling, concerning for superior vena cava syndrome or lymph edema. The patient is now being referred to Oncology for further workup and management. PAST MEDICAL HISTORY Chronic obstructive pulmonary disease, tobacco abuse, anxiety, depression, hypertension, gastric ulcer, remote history of polysubstance abuse. PAST SURGICAL HISTORY Cholecystectomy and tonsillectomy. SOCIAL HISTORY The patient lives with her mother. She takes care of her. Her mother is blind. The patient smokes half a pack per day. The patient is a Jehovah Witness. She does not want any blood products. Currently, her code status is do not resuscitate, but she is reconsidering that at this point. The patient is unemployed. FAMILY HISTORY Remarkable for alcoholism and colon cancer in her maternal grandmother. Her dad just recently in 05/2016 from complications of heart disease. ALLERGIES Penicillin. HOME MEDICATION Currently that is not available. REVIEW OF SYSTEMS CONSTITUTIONAL: Poor appetite, and significant weight loss. The patient has lost about 35 pounds of weight over the last 4 to 5 months. She attributed this to grieving because of her father's . Unit #: [id number] #: [id number] Patient: ALIZE NEW EYES: Patient denies any visual symptoms. EARS, NOSE, AND THROAT: No difficulties with hearing. No symptoms of rhinitis or sore throat. CARDIOVASCULAR: Patient denies chest pains, palpitations, orthopnea, or paroxysmal nocturnal dyspnea. RESPIRATORY: Progressive shortness of air, cough. GASTROINTESTINAL: No nausea, vomiting, diarrhea, constipation, abdominal pain, hematochezia or melena. GENITOURINARY: No urinary hesitancy or dribbling. No nocturia or urinary frequency. No abnormal urethral discharge. MUSCULOSKELETAL: No myalgias or arthralgias. NEUROLOGIC: No chronic headaches, no seizures. Patient denies numbness, tingling or weakness. PSYCHIATRIC: Patient denies problems with mood disturbance. No problems with anxiety. ENDOCRINE: No excessive urination or excessive thirst. DERMATOLOGIC: Patient denies any rashes or skin changes. ALLERGIC/IMMUNOLOGIC: Denies any symptoms. HEMATOLOGIC/LYMPHATIC: Denies any symptoms. PHYSICAL EXAMINATION GENERAL: Patient appears well developed, well nourished, and healthy. Personality: Pleasant and cooperative. Mental status: Alert and oriented. Stature: ECOG performance score 0. VITAL SIGNS: Temperature 98.7, pulse 109, respiratory rate 22, blood pressure 130/80, oxygen saturation 95% on 2 L. HEENT: Examination of head, eyes, ears, nose and throat is unremarkable except for the patient has facial swelling. HEMATOLOGIC/LYMPHATIC: There is a palpable preauricular and parotid swelling concerning for lymphadenopathy. The patient also had supraclavicular lymphadenopathy, more prominent on the right than the left. CARDIOVASCULAR: S1 and S2 regular. Normal rate without any murmurs or gallops. RESPIRATORY: Chest symmetrical, normal, breath sounds equal, bilaterally symmetrical. No rales or rhonchi, and no dullness to percussion. ABDOMEN/GASTROINTESTINAL: Abdomen is soft, nontender, and without palpable masses. No hepatosplenomegaly. EXTREMITIES: Peripheral pulses are normal. There is no edema, cyanosis, clubbing or significant varicosities. NEUROLOGICAL: Patient is alert and oriented x3. Cranial nerves II-XII are grossly intact. Motor strength is 5/5 and equal in all four extremities. Deep tendon reflexes are +2/4 and equal bilaterally. MUSCULOSKELETAL: No evidence of joint swelling, bone tenderness or muscle tenderness is appreciable. SKIN: No lesions or rashes. PSYCHIATRIC: No delusions or hallucinations, no loose associations, no flight of ideas, no tangentiality. Affect is appropriate. No psychomotor slowing or agitation. Eye contact is appropriate. DIAGNOSTIC STUDIES IMAGING STUDIES: CT scan of the chest shows extensive bulky paratracheal mediastinal, precarinal, and subcarinal lymphadenopathy. ASSESSMENT AND PLAN Ms. New is a very pleasant 56-year-old lady, who presents with progressive shortness of air and extensive lymphadenopathy. This is very concerning for malignancy. Most likely, lymphoproliferative disorder, but given her smoking history, small cell lung cancer cannot be excluded as Unit #: [id number] #: [id number] Patient: ALIZE NEW. I spent a long time discussing this with the patient. My plan is to proceed with completion of the staging workup with CT scan of the head and neck and abdomen and pelvis with IV contrast. She already had a CT scan of the chest. We will also be asking for CT-guided biopsy of a lymph node mass. I think it will be very easily accessible because there is a palpable lymphadenopathy in the neck area. I am going to ask for lymphoma protocol, including flow cytometry. I discussed the suspected diagnosis and diagnostic plan with the patient at length and answered her questions to her satisfaction. I would like to thank Dr. Malin for giving us the opportunity to be involved in the care of this pleasant patient. Dictated by... Enrique Valentin M.D., Ph.D. MIKE/bob TD: 09/28/2016 12:23 JOB #: [id number] CONSULTATION REPORT Page 1 of 1 X X CONSULTATION REPORT
--- NOTE | ~2016-09-26 | CO ---
Unit #: [id number] #: [id number] Patient: ALIZE NEW [id number] [address] [address] [id number] I MR#: [id number] NAME: ALIZE NEW ROOM: 474 Age: 56 Sex: F Admission Date: 09/26/2016 : 1960 Attending Physician: Darlene Morillo M.D. Primary Care Physician: Fanny Waite Consultation Date: 10/13/2016 CONSULTATION REPORT REASON FOR CONSULTATION Followup. DISCUSSION Ms. Zhu is a 56-year-old female, seen in room 474, bed 1 on 10/13/2016 in [facility]. The patient's 2 daughters were in the same room. The patient was breathing normally, has Oxymizer, receiving oxygen but no BiPAP. The patient slept good, received p.r.n. Ativan for agitation. No anxiety. Mood; sad, depressed, withdrawn, flat affect, guarded, still confused. Vital signs; pulse 108, blood pressure 150/87, and oxygen saturation 100%. REVIEW OF SYSTEMS Complete review of systems unremarkable. MENTAL STATUS EXAMINATION General appearance; the patient is moderately obese, dressed casually, lying in a propped up position in bed, receiving oxygen through Oxymizer. Attention span and concentration, fair. Speech, slow in volume with long pauses. Oriented in self and place. Mood and affect; sad, dysphoric, flat. Thought process, circumstantial. Thought content; guarded, unable to answer question about suicidal or homicidal ideation. Recent and remote memory, poor. Language, fair. Fund of knowledge, fair. Insight and judgment, fair to slightly impaired. DIAGNOSIS Psychiatric: Major depressive disorder, recurrent, severe, F33.2. ASSESSMENT/PLAN Supportive psychotherapy and psychoeducation provided to patient and family. The patient unable to comprehend much at this time. The patient will be going to hospice. At this time, providing comfort care. The patient has a p.r.n. medication available. If needed, consider further adjustment of medication. Please feel free to call if any questions, telephone #[phone]. Dictated by... Kee Knowles/bob TD: 10/13/2016 23:48 JOB #: [id number] Unit #: [id number] #: [id number] Patient: ALIZE NEW CONSULTATION REPORT Page 1 of 1 X Sebas Horne MD CONSULTATION REPORT
--- NOTE | ~2016-09-26 | XA55 ---
[facility] A Service of [facility] & [facility] RADIOLOGY TEXT RESULTS PATIENT: ALIZE NEW LOCATION: [facility] 572-01 : [birth year] UNIT #: [id number] AGE: [address]: James Givens MD SEX: F ORDER DR: [id number] [address] [place], [place] [address] [id number] I MR#: [id number] Acc #: [id number] NAME: ALIZE NEW : 1960 SEX: F STUDY DATE/TIME: 09/29/2016 14:29 UNIT: [facility] ROOM: [facility] STUDY DESCRIPTION: XA BX Lymph Node Superficial Attending Physician: James Givens M.D. Ordering Physician: Enrique Valentin M.D., Ph.D. Primary Care Physician: Fanny Waite R.N. MEDICAL IMAGING REPORT This report is preliminary unless electronic signature is present EXAM Ultrasound guided biopsy of a right supraclavicular lymph node. INDICATION 56-year-old female with history of multiple mediastinal masses and multiple abnormally enlarged lymph nodes in her neck. These are all suspicious for malignancy and biopsy was requested. The risks, benefits and alternatives of the procedure were discussed with the patient and informed consent was obtained. Procedure room a time-out was performed confirming correct patient and procedure. All elements of maximum sterile-barrier technique utilized according to guidelines appropriate for the procedure. TECHNIQUE/FINDINGS Ultrasound of the right supraclavicular region demonstrated multiple hypoechoic enlarged lymph nodes which were abnormal in appearance. The skin overlying the largest node was prepped and draped in the usual sterile fashion. 1% lidocaine utilized to anesthetize the skin and underlying subcutaneous tissues. Next under ultrasound guidance, 3 core biopsies of the lymph node were obtained with an 18-gauge needle. Two were sent in formalin and one was sent in Cyrus's. Needle was removed, and a sterile dressing was applied. No immediate complications. IMPRESSION Technically successful ultrasound-guided right supraclavicular lymph node core biopsy. Dictated by... Catalino Zamora M.D. STS. [facility] A Service of [facility] & [facility] RADIOLOGY TEXT RESULTS PATIENT: ALIZE NEW LOCATION: [facility]- : [birth year] UNIT #: [id number] AGE: [address]: James Givens MD SEX: F ORDER DR: THIS IS AN ELECTRONICALLY VERIFIED REPORT Catalino Zamora M.D. at 09/30/2016 7:15 AM MADDISON/jose TD: 09/30/2016 00:11 JOB #: [id number] MEDICAL IMAGING REPORT Page 1 of 1 COPY
--- NOTE | ~2016-09-26 | CR72 ---
[facility] A Service of [facility] RADIOLOGY TEXT RESULTS PATIENT: ALIZE NEW LOCATION: [place] [address] : [birth year] UNIT #: [id number] AGE: [address]: Darlene Morillo MD SEX: F ORDER DR: [id number] [facility] [address]. [place], [place] [address] [id number] I MR#: [id number] Acc #: [id number] NAME: ALIZE NEW : 1960 SEX: F STUDY DATE/TIME: 10/08/2016 7:42 UNIT: [facility] ROOM: [facility] STUDY DESCRIPTION: CR Chest Single View Portable Attending Physician: Darlene Morillo M.D. Ordering Physician: Chris Thakkar M.D. Primary Care Physician: Fanny Waite Aprn MEDICAL IMAGING REPORT This report is preliminary unless electronic signature is present EXAM Portable chest. HISTORY Status post chest tube, short of air. Lung cancer. Right-side chest tube. Continuous BiPAP. TECHNIQUE AP radiograph of the chest is presented. COMPARISON 10/07/2016 FINDINGS Right paratracheal adenopathy/mass unchanged. Superior vena caval stent unchanged. Heart upper limits of normal in size to borderline enlarged. Stable. The lungs are relatively well inflated. No pleural drain. Patchy and band-like airspace disease at the right lung base, probably atelectatic in nature. Components of basilar pneumonitis not excluded. The right basilar pleural effusion is probably smaller than on yesterday's examination. On the left, there is significantly increased dense left retrocardiac airspace disease. Components of atelectasis and pneumonia may be considered. Given distribution, correlate with any clinical concern for aspiration. New small left pleural effusion. Left upper lung zone clear. No pneumothorax. Dictated by... Doug Velazquez M.D. THIS IS AN ELECTRONICALLY VERIFIED REPORT Doug Velazquez M.D. at 10/11/2016 8:13 AM [facility] A Service of [facility] RADIOLOGY TEXT RESULTS PATIENT: ALIZE NEW LOCATION: [facility] 474-01 : [birth year] UNIT #: [id number] AGE: [address]: Darlene Morillo MD SEX: F ORDER DR: Kita TD: 10/08/2016 09:35 JOB #: [id number] MEDICAL IMAGING REPORT Page 1 of 1 COPY
--- NOTE | ~2016-09-26 | US140 ---
[facility] A Service of [facility] RADIOLOGY TEXT RESULTS PATIENT: ALIZE NEW LOCATION: [address]06-09 : [birth year] UNIT #: [id number] AGE: [address]: Darlene Morillo MD SEX: F ORDER DR: [id number] [facility] [address] [facility] [place], [place] [address] [id number] I MR#: [id number] Acc #: [id number] NAME: ALIZE NEW : 1960 SEX: F STUDY DATE/TIME: 10/07/2016 14:55 UNIT: [facility] ROOM: [facility] STUDY DESCRIPTION: UE Veins Unilat or Ltd Stdy Attending Physician: Darlene Morillo M.D. Referring Physician: Tono Rome M.D. Ordering Physician: Justin Acevedo M.D. Primary Care Physician: Fanny Waite R.N. MEDICAL IMAGING REPORT This report is preliminary unless electronic signature is present EXAM Left upper extremity venous ultrasound. HISTORY Left upper extremity swelling for one week. TECHNIQUE Venous ultrasound examination of the left upper extremity was performed using grayscale, spectral Doppler and color flow Doppler imaging. FINDINGS The examination is negative. There is no evidence of deep venous thrombus within the left internal jugular vein, subclavian vein, axillary vein or brachial veins. No superficial venous thrombus is seen within the cephalic or basilic veins. IMPRESSION Negative examination. No evidence of left upper extremity venous thrombosis. Dictated by... Nicolas Fontaine M.D. THIS IS AN ELECTRONICALLY VERIFIED REPORT Nicolas Fontaine M.D. at 10/07/2016 10:53 PM SINA/jose TD: 10/07/2016 18:03 JOB #: [id number] MEDICAL IMAGING REPORT [facility] A Service [facility] RADIOLOGY TEXT RESULTS PATIENT: ALIZE NEW LOCATION: [facility] CICCU2-08 : 64 UNIT #: [id number] AGE: [address]: Darlene Morillo MD SEX: F ORDER DR: Page 1 of 1 COPY
--- NOTE | ~2016-09-26 | CR72 ---
[facility] A Service of [facility] & [facility] RADIOLOGY TEXT RESULTS PATIENT: ALIZE NEW LOCATION: [place] [address] : 64 UNIT #: [id number] AGE: [address]: Darlene Morillo MD SEX: F ORDER DR: [id number] [facility] [address] [facility]. [place], [place] [address] [id number] I MR#: [id number] Acc #: [id number] NAME: ALIZE NEW : 1960 SEX: F STUDY DATE/TIME: 10/02/2016 6:00 UNIT: [facility] ROOM: [facility] STUDY DESCRIPTION: CR Chest Single View Portable Attending Physician: Darlene Morillo M.D. Ordering Physician: Alta Diaz M.D. Primary Care Physician: Fanny Waite Aprn MEDICAL IMAGING REPORT This report is preliminary unless electronic signature is present EXAM Portable chest. HISTORY Mediastinal shift and mass. Shortness of air. Weakness for 20 days. Patient had an SVC filter placed yesterday. FINDINGS Today's portable view of the chest shows a new superior vena cava filter. There is a large amount of right paratracheal soft tissue which is unchanged from the prior study and there is new increased density in the left lung. There is slight volume loss though this might represent simply left upper lobe atelectasis but pneumonia cannot be excluded. The bronchi are patent and this suggests that this represents pneumonia. IMPRESSION 1. There is a marked change in the appearance of the left lung with a large area of new density that has air bronchograms in the left upper chest consistent with pneumonia. 2. An SVC stent has been placed and the patient has a stable right paratracheal adenopathy or mass. STAT * RESULT Dictated by... Corbin Bui M.D. THIS IS AN ELECTRONICALLY VERIFIED REPORT Corbin Bui M.D. at 10/02/2016 12:39 PM FEL/tmw [facility] A Service of [facility] & [facility] RADIOLOGY TEXT RESULTS PATIENT: ALIZE NEW LOCATION: [address]08 : [birth year] UNIT #: [id number] AGE: [address]: Darlene Morillo MD SEX: F ORDER DR: TD: 10/02/2016 07:04 JOB #: [id number] MEDICAL IMAGING REPORT Page 1 of 1 COPY
--- NOTE | ~2016-09-26 | CR72 ---
[facility] A Service of [facility] & [facility] RADIOLOGY TEXT RESULTS PATIENT: ALIZE NEW LOCATION: [place] [address] : [birth year] UNIT #: [id number] AGE: [address]: Darlene Morillo MD SEX: F ORDER DR: [id number] [facility] [address] [facility]. [place], [place] [address] [id number] I MR#: [id number] Acc #: [id number] NAME: ALIZE NEW : 1960 SEX: F STUDY DATE/TIME: 10/07/2016 13:58 UNIT: [facility] ROOM: [facility] STUDY DESCRIPTION: CR Chest Single View Portable Attending Physician: Darlene Morillo M.D. Ordering Physician: Chris Thakkar M.D. MEDICAL IMAGING REPORT This report is preliminary unless electronic signature is present EXAM AP portable chest HISTORY Follow up pneumothorax. FINDINGS An AP portable view is obtained. Cardiac size is stable. Left lung is clear. Right-sided Wallstent endoprosthesis remains in good position. Right paratracheal lymphadenopathy is unchanged. Continues to be volume loss and pleural fluid at the right base. No pneumothorax. CONCLUSION 1. No pneumothorax. Postop changes of prior Wallstent placement into the vena cava. Right pleural fluid and right lower lobe atelectasis. Dictated by... Doug Knox M.D. THIS IS AN ELECTRONICALLY VERIFIED REPORT Doug Knox M.D. at 10/10/2016 9:18 AM LEI/jonh TD: 10/07/2016 16:10 JOB #: [id number] MEDICAL IMAGING REPORT Page 1 of 1 COPY
--- NOTE | ~2016-09-26 | CO ---
Unit #: [id number] #: [id number] Patient: ALIZE NEW [id number] [facility] [address] [facility]. [place], [place] [address] [id number] I MR#: [id number] NAME: ALIZE NEW ROOM: [facility] Age: 56 Sex: F Admission Date: 09/26/2016 : 1960 Attending Physician: James Givens M.D. 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 CHIEF COMPLAINT Shortness of breath and facial swelling. HISTORY OF PRESENT ILLNESS Ms. Alize New is a pleasant 56-year-old female who has approximately 52-hzpf-arbp history of smoking. She has known COPD. She states that she has not felt well for over a year but has become increasingly short of breath and had some right arm swelling for the last month. She was seen in the emergency room here, at [facility] 09/16/2016, and at that time, a CT scan of the chest was performed. The patient was noted to have extensive mediastinal adenopathy particularly in the paratracheal, precarinal and subcarinal regions. The patient was to have seen her primary care physician but prior to this she required supplemental oxygen and was on albuterol inhalers. She subsequently developed facial swelling and was readmitted 09/26/2016. The patient has been seen by Dr. Enrique Valentin, who had reviewed CT scans for what appeared to be a malignant process involving the mediastinum as well as the right supraclavicular fossa. The patient had symptoms concerning for superior vena caval syndrome. The patient had fine-needle aspiration of right supraclavicular node performed yesterday. Discussion with Dr. Adelita Parada demonstrates this is most likely a poorly-differentiated carcinoma as opposed to a lymphoma or even small cell malignancy. There could be some neuroendocrine elements and special stains are pending at this time. The patient is in some distress and I have been asked to see her regarding palliative radiotherapy. RECOMMENDATIONS Ms. New has undergone staging studies including CT scans of the chest, abdomen and pelvis, and brain. Fortunately, there is no evidence of metastatic disease on any of these studies. At this point, the patient has most likely Stage IIIB non-small cell malignancy. The patient will certainly require chemoradiotherapy as definitive management as she is clearly not a surgical candidate. The patient should also be covered for possible tumor lysis syndrome. In addition, the patient is certainly a candidate for superior vena caval stent placement. I have contacted Dr. Sims of Interventional Radiology and a stent is being obtained at this time. The patient will undergo this procedure first thing in the morning which should provide her fairly dramatic relief of facial and arm edema. We will plan CT simulation likely as an outpatient once patient's symptoms have improved, possibly either on the or 05 of October. The patient will also require outpatient PET CT imaging to complete her Unit #: [id number] #: [id number] Patient: ALIZE NEW staging workup. It is certainly my pleasure to participate in her care. PAST MEDICAL HISTORY Remarkable for: 1. Tobacco abuse, 1 to 1-1/2 packs of cigarettes per day for 15 years. 2. COPD. 3. Anxiety depression. 4. History of gastric ulcers. 5. History of hypertension. PAST SURGICAL HISTORY Remarkable for: 1. Cholecystectomy. 2. Tonsillectomy. MEDICATIONS Include: 1. Lipitor 20 mg. 2. Duloxetine 60 mg. 3. Lexapro 20 mg. 4. Proventil inhalers q.4 h. 5. Ventolin q.i.d. 6. Gabapentin 300 mg q.i.d. 7. Metformin 500 mg daily. 8. Seroquel 200 mg h.s. 9. Lotrel 10/40 one daily. ALLERGIES Penicillin. FAMILY HISTORY Remarkable for alcoholism and colon cancer in a maternal grandmother. Patient's father had heart disease as well. REVIEW OF SYSTEMS The patient denies seizure activity. She has significant facial swelling which makes it difficult to see as she has orbital edema. She reports fullness and swelling in the right neck region. Certainly her right arm and left arm to a lesser extent are swollen as well. She denies any GI or gu complaints or urinary difficulties. She denies hemoptysis or hematemesis. The patient has lost 35 pounds over the last 5 months. She is still grieving over her father's . PHYSICAL EXAMINATION VITAL SIGNS: Temperature 97.8, pulse currently 88, respirations 20. Patient currently on 2 liters O2 with O2 saturation 100%, blood pressure 157/81. Height 4 feet 11 inches. Weight 123 pounds. BMI 24. HEENT: Pupils appear to be reactive to light and accommodation. It is difficult to assess ocular movements due to periorbital edema. The entire face, neck, right upper arm are markedly swollen. CHEST WALL: Examination of the chest wall demonstrates early signs of caput medusa. There is definite left supraclavicular adenopathy which is bulky measuring in excess of 4 cm. Left supraclavicular fossa unremarkable. LUNGS: Auscultated. Mild wheezing audible in the right upper lung field. The bases are relatively clear. The breath sounds are somewhat distant. Unit #: [id number] #: [id number] Patient: ALIZE NEW HEART: Mild tachycardia. No obvious gallop or murmur. ABDOMEN: Soft, nontender, nondistended. Bowel sounds positive. EXTREMITIES: Significant right arm edema. Pulses remain strong. Less swelling on the left arm. Lower extremities without edema. GENITOURINARY: Not performed. RECTAL: Not performed. DIAGNOSTIC STUDIES LABORATORY: Glucose 114, BUN 11, creatinine 0.7, sodium 136, potassium 4.1, calcium 9.7, albumin 4.1. Liver enzymes demonstrate very mild elevation with ALT of 42. Alkaline phosphatase normal at 70. WBC 24.9, hemoglobin 12.2, platelet count 247,000. Approximately 60 minutes spent discussing case with patient. Dictated by... Levi Tobias M.D. PAOLO/brenda TD: 09/30/2016 18:43 JOB #: [id number] CC: Enrique Valentin M.D., Ph.D. CONSULTATION REPORT Page 1 of 1 X Levi Tobias MD X CONSULTATION REPORT
--- NOTE | ~2016-09-26 | TOC ---
Unit #: [id number] #: [id number] Patient: ALIZE NEW [id number] [address] [address] [id number] I MR#: [id number] NAME: ALIZE NEW ROOM: [facility] Age: 56 Sex: F Admission Date: 09/26/2016 : 1960 Attending Physician: Darlene Morillo M.D. Primary Care Physician: Fanny Waite Aprn TRANSFER OF CARE SUMMARY PRINCIPAL DIAGNOSES 1. Acute hypoxic respiratory failure. 2. 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 4. Chronic obstructive pulmonary disease. 5. Anxiety/depression. 6. Hypertension. 7. Acute hypoxic and hypercapnic respiratory failure. HOSPITAL COURSE The patient is a 56-year-old female who presented to [facility] emergency department secondary to some sob. The patient states that it had been coming on for approximately 10 days. Some question of associated fevers and chest tightness. She reports constipation, but also a 35 pound weight loss over the past 4-5 months. The patient had been seen in the emergency department at [facility] on 09/16/2016 and was noted to have a lung mass. Follow-up CT on 09/24/2016 showed bulky paratracheal mediastinal precarinal subcarinal right hilar adenopathy. It was initially thought to be concerning for lymphoproliferative disease. Upon presentation for this particular admission, the patient was noted to have oxygen saturations of 86% on room air. She was subsequently placed on oxygen and admitted. Over the course of four days the patient began to experience extreme swelling of her upper extremities and face, became concerning for inferior vena cava syndrome and radiation oncology was called. Given the severity of symptoms, ultimately interventional radiology consult was placed and the patient has had a superior vena cava stent placed with good effect. The patient does continue to suffer from acute respiratory failure, both hypoxic and hypercapnic and is currently being seen by respiratory and managed with BiPAP. The patient has also been seen by hematology and oncology and further workup has yet to be determined. Dictated by... James Givens M.D. Unit #: [id number] #: [id number] Patient: ALIZE NEW CAM/gz TD: 10/02/2016 08:01 JOB #: [id number] TRANSFER OF CARE SUMMARY Page 1 of 1 X James Givens MD TRANSFER OF CARE SUMMARY
--- NOTE | ~2016-09-26 | CO ---
Unit #: [id number] #: [id number] Patient: ALIZE NEW [id number] [facility] [address] [facility]. [place], [place] [address] [id number] I MR#: [id number] NAME: ALIZE NEW ROOM: 474 Age: 56 Sex: F Admission Date: 09/26/2016 : 1960 Attending Physician: Darlene Morillo M.D. Primary Care Physician: Fanny Waite Consultation Date: 10/09/2016 CONSULTATION REPORT REASON FOR CONSULTATION Followup. DISCUSSION Ms. Magalys Booth is a 56-year-old female, seen in room 474, bed 1 on 10/09/2016. The patient was transferred from ICU, seen at [facility]. The patient family member was at the bedside. The patient was receiving breathing through BiPAP, pleasant, cooperative, alert, oriented, able to answer questions coherently. Denied any thoughts of harming self or others. Denied any psychotic symptom. Reports sleeping good, anxiety is better. The patient's vital signs; pulse 104, respiratory rate 16, blood pressure 132/61, oxygen saturation 100%. REVIEW OF SYSTEMS Complete review of system unremarkable. MENTAL STATUS EXAMINATION General appearance; the patient moderately obese, dressed casually in hospital attire, breathing through BiPAP. Speech, slow. Orientation in self and place. Mood and affect, labile. Thought process, coherent. Thought content, the patient denied any thoughts of harming self or others or any psychotic symptom. Recent and remote memory, fair. Language, intact. Fund of knowledge, fair. Insight and judgment, fair to slightly impaired. DIAGNOSIS Psychiatric: Major depressive disorder, recurrent, severe, F33.2. ASSESSMENT/PLAN 1. Supportive psychotherapy and psychoeducation provided to the patient. 2. Educated about benefits and side effects of medication and course and prognosis of illness. 3. Advised to continue with current medication combination and if needed, consider further adjustment of medication. We will continue to follow. Please feel free to call if any questions, telephone #[phone]. Dictated by... Sebas Horne M.D. KATIE/bob TD: 10/10/2016 23:53 Unit #: [id number] #: [id number] Patient: ALIZE NEWIA JOB #: [id number] CONSULTATION REPORT Page 1 of 1 X Sebas Horne MD CONSULTATION REPORT
--- NOTE | ~2016-09-26 | XA210 ---
[facility] A Service of [facility] & [facility] RADIOLOGY TEXT RESULTS PATIENT: ALIZE NEW LOCATION: [address] : [birth year] UNIT #: [id number] AGE: [address]: Darlene Morillo MD SEX: F ORDER DR: [id number] [facility] [address] [facility]. [place], [place] [address] [id number] I MR#: [id number] Acc #: [id number] NAME: ALIZE NEW : 1960 SEX: F STUDY DATE/TIME: 10/01/2016 16:23 UNIT: [facility] ROOM: [facility] STUDY DESCRIPTION: XA Venacavagram Superior Attending Physician: Darlene Morillo M.D. Ordering Physician: James Givens M.D. Primary Care Physician: Fanny Waite Aprn MEDICAL IMAGING REPORT This report is preliminary unless electronic signature is present EXAM Superior vena cavagram and SVC stent placement dated 10/01/2016. HISTORY Lung cancer with SVC syndrome, upper extremity swelling. TECHNIQUE Procedure, attendant risks, and options were discussed with Ms. New; she understands and wishes to proceed. She underwent previous attempts from the groin earlier in the day; these were unsuccessful. A right arm-approach was chosen. Conscious sedation was administered consisting of IV Versed and fentanyl. Patient was monitored by the IR nurse. The right arm was prepped and draped. Maximal sterile barrier technique was utilized, including masks, hats, gloves, gowns and shoe covers. Sterile barrier technique was utilized during the entire procedure. A micropuncture was performed of the right basilic vein, and a 0.018 wire was inserted, followed by a micropuncture set, and an 0.035 wire was placed. Serial dilatation was performed, and 10-Malian working sheath was advanced into the innominate vein. SVC angiography was performed, showing an irregular mass constricting and involving the SVC and distal right innominate vein. There is reflux into the left innominate vein, and it is filled with tumor thrombus, as well. At this point, a 10-mm x 4-cm angioplasty balloon was placed through the sheath, across the area of narrowing, and this was predilated. An 18-mm x 6-cm Wallstent was then deployed through the 10-Malian sheath. This was subsequently serially balloon-dilated in place with a final balloon of 18 mm. A followup cavogram was obtained, showing a widely patent SVC and innominate vein with good flow back to the right atrium. The catheter was STS. [facility] A Service of [facility] RADIOLOGY TEXT RESULTS PATIENT: ALIZE NEW LOCATION: [address] : [birth year] UNIT #: [id number] AGE: [address]: Darlene Morillo MD SEX: F ORDER DR: removed from the right arm, and hemostasis achieved. The procedure was very well tolerated. Patient was returned to the ICU postprocedure for care. CONCLUSION Successful placement of an 18-mm x 6-cm Wallstent across the SVC occlusion. This results in normalization of flow. Total fluoroscopy time 17.1 minutes. Total imaging 4 DSA runs and 7 spot radiographs. Dictated by... Doug Knox M.D. THIS IS AN ELECTRONICALLY VERIFIED REPORT Doug Knox M.D. at 10/05/2016 5:13 PM LEI/chuyita TD: 10/04/2016 12:49 JOB #: [id number] MEDICAL IMAGING REPORT Page 1 of 1 COPY
--- NOTE | ~2016-09-26 | CO ---
Unit #: [id number] #: [id number] Patient: ALIZE NEW [id number] [address] [address] [id number] I MR#: [id number] NAME: ALIZE ENW ROOM: [facility] Age: 56 Sex: F Admission Date: 09/26/2016 : 1960 Attending Physician: James Givens M.D. Primary Care Physician: Fanny Waite Consultation Date: 09/30/2016 CONSULTATION REPORT REASON FOR CONSULTATION Depression, anxiety. HISTORY OF PRESENT ILLNESS Ms. New is a 56-year-old female, seen in room 572, bed 1 on 09/30/16. The patient was confused, anxious, nervous. Mood was irritable. Patient reported having severe anxiety. Patient currently on DNR status. Patient was admitted with shortness of air. Carries a diagnosis of COPD with continued tobacco use, depression, anxiety, hypertension. Patient sad, depressed but denied any suicidal or homicidal ideation. Denied any psychotic symptoms. Patient has a past history of substance abuse. Patient has been refusing treatment, withdrawn, sad, dysphoric but denied any suicidal ideation. PAST PSYCHIATRIC HISTORY Remarkable for history of depression, anxiety. No history of any suicide attempt. MEDICAL HISTORY History of hypertension, gastric ulcer, COPD, history of myocardial infarction with ejection fraction 56%. ALLERGIES Penicillin. MEDICATIONS Patient is on Lipitor, duloxetine 60 mg, Lexapro 20 mg, Proventil, Ventolin, gabapentin 300 mg t.i.d., metformin, Seroquel 200 mg at bedtime, Lotrel. FAMILY HISTORY/SOCIAL HISTORY Poor support system. No history of abuse. History of cocaine abuse in 2007, none recently. REVIEW OF SYSTEMS A complete review of systems is unremarkable except as mentioned above. MENTAL STATUS EXAMINATION Vital signs - 97.9; 103; 18; 150/82; oxygen saturation 99%. General appearance - Patient dressed casually. Seemed somewhat anxious, nervous, restless. Attention span, concentration - Poor. Speech - Rapid. Oriented to self and place. Mood and affect - Labile. Thought process - Circumstantial. Thought content - The patient denied any thoughts of harming self or others but guarded, somewhat anxious, irritable. Recent Unit #: [id number] #: [id number] Patient: ALIZE NEW and remote memory - Fair. Language - Intact. Fund of knowledge - Fair. Insight and judgment - Fair to slightly impaired. DIAGNOSIS PSYCHIATRIC: Major depressive disorder, recurrent, severe, F33.2; anxiety disorder, NOS, F40.01. ASSESSMENT AND PLAN 1. Supportive psychotherapy and psychoeducation provided to the patient. 2. Educated about benefits and side effects of medication and course and prognosis of illness. 3. Advised to continue with the current medication. Patient is on Lexapro, Cymbalta and Seroquel. Advise at this time Vistaril 25 mg 3 times a day for anxiety and Xanax 0.5 mg 3 times a day for anxiety. If needed, consider further adjustment in medications. Please feel free to call with any questions, telephone number . Dictated by... Sebas Horne M.D. KATIE/dereje TD: 10/01/2016 09:26 JOB #: [id number] CONSULTATION REPORT Page 1 of 1 X Sebas Horne MD CONSULTATION REPORT
--- NOTE | ~2016-09-26 | CR72 ---
[facility] A Service of [facility] & [facility] RADIOLOGY TEXT RESULTS PATIENT: ALIZE NEW LOCATION: [address] : [birth year] UNIT #: [id number] AGE: [address]: Darlene Morillo MD SEX: F ORDER DR: [id number] [facility] [address] [facility]. [place], [place] [address] [id number] I MR#: [id number] Acc #: [id number] NAME: ALIZE NEW : 1960 SEX: F STUDY DATE/TIME: 10/06/2016 5:47 UNIT: [facility] ROOM: [facility] STUDY DESCRIPTION: CR Chest Single View Portable Attending Physician: Darlene Morillo M.D. Ordering Physician: Alta Diaz M.D. Primary Care Physician: Fanny Waite Aprn MEDICAL IMAGING REPORT This report is preliminary unless electronic signature is present EXAM Portable chest 10/06/2016 HISTORY 56-year-old female with shortness of air for 10 days. Essential hypertension. COMPARISON Chest 10/05/2016. FINDINGS Frontal chest demonstrates tubes and lines in stable position. Tiny residual right apical pneumothorax is unchanged. Right pleural effusion and right basilar atelectasis/infiltrate unchanged. SVC stent. Heart size stable. Left lung clear. IMPRESSION 1. Tubes and lines are stable. Stable tiny right apical pneumothorax. 2. Persistent right pleural effusion and right basilar atelectasis. Dictated by... Harris Jc M.D. THIS IS AN ELECTRONICALLY VERIFIED REPORT Harris Jc M.D. at 10/06/2016 3:23 PM JASON/liz TD: 10/06/2016 08:30 JOB #: [id number] MEDICAL IMAGING REPORT Page 1 of 1 COPY
--- NOTE | ~2016-09-26 | CR72 ---
[facility] A Service of [facility] & [facility] RADIOLOGY TEXT RESULTS PATIENT: ALIZE NEW [facility] [birth year] UNIT #: [id number] AGE: [address]: Darlene Morillo MD SEX: F ORDER DR: [id number] [facility] [address] [facility]. [place], [place] [address] [id number] E MR#: [id number] Acc #: [id number] NAME: ALIZE NEW : 1960 SEX: F STUDY DATE/TIME: 09/26/2016 8:01 UNIT: [facility] ROOM: STUDY DESCRIPTION: CR Chest Single View Portable Attending Physician: Caroline Tamayo P.A.-C. Ordering Physician: Caroline Tamayo P.A.-C. Primary Care Physician: Fanny Waite R.N. MEDICAL IMAGING REPORT This report is preliminary unless electronic signature is present EXAM AP chest COMPARISON CT chest dated September 24, 2016 and two views of the chest dated September 16, 2016 and March 27, 2013. INDICATION 56-year-old female with dyspnea, cough and congestion as well as fever for 3 weeks. History of COPD and emphysema. Hypertension and asthma. FINDINGS As compared to CT of 2 days ago, there is grossly stable right-sided mediastinal and hilar adenopathy. There is slight increased band-like opacities in the right lung base as compared to September 16, 2016 and given the patient's symptoms, developing pneumonia cannot be excluded. There is also increased opacity in the left lung base representing atelectasis or pneumonia. No convincing evidence of pleural effusion. No pneumothorax. Heart size within normal limits. IMPRESSION 1. As compared to CT of 2 days ago there is grossly stable bulky adenopathy in the mediastinum and right hilar region concerning for lymphoma. 2. Increased bibasilar opacities representing any combination of atelectasis or pneumonia. No convincing evidence of pleural effusion. Dictated by... Vitor Parker M.D. THIS IS AN ELECTRONICALLY VERIFIED REPORT Vitor Parker M.D. at 10/03/2016 7:35 PM [facility] A Service of [facility] & [facility] RADIOLOGY TEXT RESULTS PATIENT: ALIZE NEW LOCATION: [address] : [birth year] UNIT #: [id number] AGE: [address]: Darlene Morillo MD SEX: F ORDER DR: JUDAH/nisha TD: 09/26/2016 09:30 JOB #: [id number] MEDICAL IMAGING REPORT Page 1 of 1 COPY
--- NOTE | ~2016-09-26 | FU ---
[facility] Therapy DATE: 10/13/16 Patient: ALIZE NEW Physician: JACQUIE Address: [address] [place] [address] Room/Bed: [address] [place] [address], Zip: [place] [address] Admit Date: 09/26/16 Date of : [birth year] Height: 4 11 Weight: 130 59 NUTRITION MONITORING/FOLLOW-UP: Reason: PT SEEN FOR FOLLOW-UP DX: ACUTE RESP FAILURE, PNA Anthropometrics: 4'11", WT: 130# (59 KG), BMI: 26.3 (LAST WEIGHT WAS 10/08/16) Labs: NO CURRENT LABS. LAST LABS: 10/08/16 Meds: REVIEWED I&O's: 670/1300 Skin: (L) HAND 1+ EDEMA; LUE 2+ EDEMA; RLE 1+ EDEMA Assessment: CHART REVIEWED AND EVENTS NOTED. PT SEEN FOR FOLLOW-UP. PT ASLEEP ON BIPAP AT TIME OF VISIT. PT DID NOT WAKE TO VERBAL CUES. PER RN, PT CONSUMING 100% OF MEALS AND SUPPLEMENTS WELL FOOD FROM OUTSIDE BROUGHT IN FROM FAMILY. PER RN AND CHART, COMFORT MEASURES IN PLACE, WAITING FOR INPATIENT HOSPICE BED. RD TO REMAIN AVAILABLE. Dx: INADEQUATE ORAL INTAKE R/T CURRENT CONDITION, POOR APPETITE AEB <50% OF MEALS TOLERATED PER RN.-RESOLVED Intervention: 1. REGULAR DIET 2. SHASHI ENSURE SHAKES BID Monitoring, Evaluation and Goals: 1. ORAL INTAKE; CONSUME >50% OF MEALS AND SUPPLEMENTS-MET 2. WEIGHTS; PROMOTE MAINTENANCE OF HEALTHY WEIGHT-UNMEASURED (LAST WEIGHT WAS 10/08/16) 3. LABS; WNL-UNMEASURED (NO CURRENT LABS SINCE 10/08/16) 4. GI; PROMOTE REGULAR GI FUNCTION-IN PROGRESS MONITOR: -PO INTAKE/APPETITE -PLANS IN PLACE Recommendations: 1. CONTINUE TO ENCOURAGE ADEQUATE PO INTAKE RD WILL F/U PER PROTOCOL Respectfully, [facility] Therapy DATE: 10/13/16 Patient: ALIZE NEW Physician: JACQUIE Address: [address] [place] [address] Room/Bed: [address] [place] [address], Zip: [place] [address] Admit Date: 09/26/16 Date of : [birth year] Height: 4 11 Weight: 130 59 ELIF BAZAN MS, RD, LD [employer] [facility] cc: client file
--- NOTE | ~2016-09-26 | CR72 ---
[facility] A Service of [facility] / [facility] RADIOLOGY TEXT RESULTS PATIENT: ALIZE NEW LOCATION: [address] : [birth year] UNIT #: [id number] AGE: [address]: Darlene Morillo MD SEX: F ORDER DR: [id number] [facility] [address]. [place], [place] [address] [id number] I MR#: [id number] Acc #: [id number] NAME: ALIZE NEW : 1960 SEX: F STUDY DATE/TIME: 10/05/2016 10:11 UNIT: [facility] ROOM: [facility] STUDY DESCRIPTION: CR Chest Single View Portable Attending Physician: Darlene Morillo M.D. Ordering Physician: Alta Diaz M.D. Primary Care Physician: Fanny Waite Aprn MEDICAL IMAGING REPORT This report is preliminary unless electronic signature is present EXAM Chest portable 10/05/2016 1011 hours HISTORY Right-sided chest tube, follow up pneumothorax. New chest tube placement today. COMPARISON 10/05/2016 0532 hours. FINDINGS Interval placement of a new right chest tube with tip at the right apex. There is re-expansion of the right lung. No residual lateral basal pneumothorax is seen. There may be a residual 3 mm right apical pneumothorax. Left lung is clear. IMPRESSION Interval placement of right chest tube with re-expansion of the right lung. There is no residual lateral basal pneumothorax. There may be 3 mm residual tiny right apical pneumothorax. Dictated by... Jaylin Aragon M.D. THIS IS AN ELECTRONICALLY VERIFIED REPORT Jaylin Aragon M.D. at 10/05/2016 2:31 PM WILIAM/eliz TD: 10/05/2016 14:16 JOB #: [id number] [facility] A Service of [facility] / [facility] RADIOLOGY TEXT RESULTS PATIENT: ALIZE NEW LOCATION: [address] : [birth year] UNIT #: [id number] AGE: [address]: Darlene Morillo MD SEX: F ORDER DR: MEDICAL IMAGING REPORT Page 1 of 1 COPY
--- NOTE | ~2016-09-26 | DS ---
Unit #: [id number] #: [id number] Patient: ALIZE NEW [id number] [address] [address] [id number] I MR#: [id number] NAME: ALIZE NEW ROOM: 474 Age: 56 Sex: F Admission Date: 09/26/2016 : 1960 Discharge Date: 10/13/2016 Attending Physician: Darlene Morillo M.D. Primary Care Physician: Fanny Waite DISCHARGE SUMMARY ADDENDUM HOSPITAL COURSE Please refer to transfer of care note done on October 12, 2016. This is patient's discharge summary. She was transferred to inpatient hospice on the on medications as noted. Dictated by... Darlene Morillo M.D. ART/ellie TD: 10/21/2016 10:01 JOB #: [id number] DISCHARGE SUMMARY Page 1 of 1 X Darlene Morillo MD DISCHARGE SUMMARY
--- NOTE | ~2016-09-26 | CR72 ---
[facility] A Service of [facility] & [facility] RADIOLOGY TEXT RESULTS PATIENT: ALIZE NEW LOCATION: [address] : [birth year] UNIT #: [id number] AGE: [address]: Darlene Morillo MD SEX: F ORDER DR: [id number] [facility] [address] [facility]. [place], [place] [address] [id number] I MR#: [id number] Acc #: [id number] NAME: ALIZE NEW : 1960 SEX: F STUDY DATE/TIME: 10/05/2016 5:32 UNIT: [facility] ROOM: [facility] STUDY DESCRIPTION: CR Chest Single View Portable Attending Physician: Darlene Morillo M.D. Ordering Physician: Alta Diaz M.D. Primary Care Physician: Fanny Waite Aprn MEDICAL IMAGING REPORT This report is preliminary unless electronic signature is present EXAM Portable chest. HISTORY History of lung cancer, respiratory failure for 9 days. FINDINGS Today's portable view of the chest shows a new right-sided pneumothorax. The pneumothorax is at least probably 30%. It is seen in the apex and the base, and there is partial atelectasis in the right lower lobe. The right paratracheal mass and SVC stent is stable, and the left lung is clear. IMPRESSION 1. There is a new right-sided pneumothorax with pleural line seen in the apex and right lower chest; it is up to 2.5 cm away from the chest wall. I would estimate the volume at least 30%. There is partial atelectasis of the right lower lobe. 2. I have discussed the findings with the patient's nurse, Mariann, in the ICU. She is going to notify the appropriate physician. 3. Otherwise, no change. Dictated by... Corbin Bui M.D. THIS IS AN ELECTRONICALLY VERIFIED REPORT Corbin Bui M.D. at 10/05/2016 3:54 PM LYLE/chuyita TD: 10/05/2016 13:23 JOB #: [id number] [facility] A Service of [facility] & [facility] RADIOLOGY TEXT RESULTS PATIENT: ALIZE NEW LOCATION: [facility]2-08 : [birth year] UNIT #: [id number] AGE: [address]: Darlene Morillo MD SEX: F ORDER DR: MEDICAL IMAGING REPORT Page 1 of 1 COPY
--- NOTE | ~2016-09-26 | CT69 ---
[facility] A Service of [facility] RADIOLOGY TEXT RESULTS PATIENT: ALIZE NEW LOCATION: [facility] 572-01 : [birth year] UNIT #: [id number] AGE: [address]: James Givens MD SEX: F ORDER DR: [id number] [address] [place], [place] [address] [id number] I MR#: [id number] Acc #: [id number] NAME: ALIZE NEW : 1960 SEX: F STUDY DATE/TIME: 09/27/2016 13:36 UNIT: [facility] ROOM: [facility] STUDY DESCRIPTION: CT Head W Contrast Attending Physician: James Givens M.D. Ordering Physician: Enrique Valentin M.D., Ph.D. Primary Care Physician: Fanny Waite R.N. MEDICAL IMAGING REPORT This report is preliminary unless electronic signature is present EXAM CT head with contrast INDICATION Unexplained weight loss of 35 pounds in the past 4-5 months. Malignancy. Chest mass. Observation for metastatic disease. PROCEDURE Contrast-enhanced CT of the head. This CT exam was performed with one or more of the following radiation dose reduction techniques: automatic exposure control, adjustment of mA and/or kV according to patient size, and iterative reconstruction. FINDINGS No abnormal mass effect. No enhancing mass. No evidence for hemorrhage, extraaxial collection or hydrocephalus. No calvarial fracture. Paranasal sinuses and mastoid air cells clear. IMPRESSION 1. No acute findings. 2. No enhancing intracranial mass. Dictated by... Jf Wilcox M.D. THIS IS AN ELECTRONICALLY VERIFIED REPORT Jf Wilcox M.D. at 09/28/2016 9:54 PM EARL/nisha TD: 09/28/2016 08:05 JOB #: [id number] [facility] A Service [facility] RADIOLOGY TEXT RESULTS PATIENT: ALIZE NEW LOCATION: [facility]2-01 : [birth year] UNIT #: [id number] AGE: [address]: James Givens MD SEX: F ORDER DR: MEDICAL IMAGING REPORT Page 1 of 1 COPY
--- NOTE | ~2016-09-26 | CR72 ---
[facility] A Service of [facility] & [facility] RADIOLOGY TEXT RESULTS PATIENT: ALIZE NEW LOCATION: [address] : [birth year] UNIT #: [id number] AGE: [address]: Darlene Morillo MD SEX: F ORDER DR: [id number] [facility] [address] [place], [place] [address] [id number] I MR#: [id number] Acc #: [id number] NAME: ALIZE NEW : 1960 SEX: F STUDY DATE/TIME: 10/04/2016 10:27 UNIT: [facility] ROOM: [facility] STUDY DESCRIPTION: CR Chest Single View Portable Attending Physician: Darlene Morillo M.D. Ordering Physician: Alta Diaz M.D. Primary Care Physician: Fanny Waite Aprn MEDICAL IMAGING REPORT This report is preliminary unless electronic signature is present EXAM Portable chest, 10/04 INDICATION Shortness of air, weakness and pneumonia. FINDINGS AP portable chest is compared with 10/29/2016. SVC stent in place. Bulky mediastinal adenopathy is again identified. There is infiltrate in the left pip-ey-tzsjj lung but aeration of the left lung is much improved since the prior study. Minimal atelectasis right base. There is a line with adjacent lucency at the right apex. This may be artifact but a tiny pneumothorax could have this appearance. Consider short interval followup chest x-ray. IMPRESSION Marked interval improvement in aeration of the left lung. There is still some infiltrate noted. There is lucency with an adjacent line at the right apex. This may be artifact but it could also represent a tiny right apical pneumothorax. Short interval followup chest x-ray recommended. STAT * RESULT Dictated by... Brian Potts Jr., M.D. THIS IS AN ELECTRONICALLY VERIFIED REPORT Brian Potts Jr., M.D. at 10/04/2016 5:01 PM JEANINE/nisha TD: 10/04/2016 11:29 JOB #: [id number] [facility] A Service of [facility] & [facility] RADIOLOGY TEXT RESULTS PATIENT: ALIZE NEW LOCATION: [address]08 : [birth year] UNIT #: [id number] AGE: [address]: Darlene Morillo MD SEX: F ORDER DR: MEDICAL IMAGING REPORT Page 1 of 1 COPY
--- NOTE | ~2016-09-26 | CT57 ---
[facility] A Service of [facility] & [facility] RADIOLOGY TEXT RESULTS PATIENT: ALIZE NEW LOCATION: [address] : [birth year] UNIT #: [id number] AGE: [address]: Darlene Morillo MD SEX: F ORDER DR: [id number] [facility] [address] [place], [place] [address] [id number] I MR#: [id number] Acc #: [id number] NAME: ALIZE NEW : 1960 SEX: F STUDY DATE/TIME: 10/04/2016 11:17 UNIT: [facility] ROOM: [facility] STUDY DESCRIPTION: CT Chest Wo Cont Attending Physician: Darlene Morillo M.D. Ordering Physician: Alta Diaz M.D. Primary Care Physician: Fanny Waite MEDICAL IMAGING REPORT This report is preliminary unless electronic signature is present EXAM CT chest without contrast, 10/04/2016, 1117 hours. CLINICAL HISTORY 56-year-old woman with new diagnosis of lung carcinoma. Patient has had shortness of air since 10/02/2016. History of COPD. COMPARISON CT chest, 09/24/2016. TECHNIQUE Helical noncontrasted images were obtained from the thoracic inlet through the adrenal glands. Sagittal and coronal reconstructions were performed. Total exam DLP 644 mGy-cm. This CT exam was performed with one or more of the following radiation dose reduction techniques: automatic exposure control, adjustment of mA and/or kV according to patient size, and iterative reconstruction. FINDINGS Images through the thoracic inlet demonstrate right supraclavicular greater than left supraclavicular lymphadenopathy with example node on image 1 measuring 2 cm, unchanged from 09/24/2016. Images through the chest demonstrate placement of a new SVC stent with bulky anterior mediastinal, superior right paratracheal, right suprahilar, middle mediastinal, and subcarinal and infrahilar adenopathy. Fahad masses are large and appears slightly increased. Example measurement in the right paramediastinal region is 4.3 x 4.0 cm, previously 3.9 x 3.3 cm. Anterior mediastinal mass measures 4.4 x 5.8 cm, previously 4.8 x 4.2 cm. Similar slight increase in size of subcarinal adenopathy is seen encasing the right bronchus intermedius. There is slight atelectasis at the right base with a new small right effusion. [facility] A Service of [facility] RADIOLOGY TEXT RESULTS PATIENT: ALIZE NEW LOCATION: [facility]2-08 : 64 UNIT #: [id number] AGE: [address]: Darlene Morillo MD SEX: F ORDER DR: There is diffuse interstitial and airspace change in the left upper lobe with a new nodule present measuring 2.6 x 1.6 cm. Given the short interval, an infectious or hemorrhagic change would be favored. The area of linear spiculated density in the anterior left upper lobe best seen on image 17 is unchanged from 09/24/2016. Left lower lobe demonstrates very minimal interstitial change at the base. Limited views through the upper abdomen demonstrate no adenopathy. The adrenal glands appear normal. IMPRESSION 1. A new SVC stent is present. Again demonstrated supraclavicular adenopathy, bulky superior mediastinal, anterior prevascular, right paratracheal, precarinal, subcarinal and right infrahilar adenopathy. The fahad masses measure slightly larger than on 09/24/2016. 2. There is new diffuse interstitial change in the left upper lobe with a new ovoid irregularly marginated nodule in the left upper lobe measuring 2.6 x 1.6 cm. Given the interval development since 09/24/2016, an infectious or inflammatory etiology is favored. It is possible this represents hemorrhage. Correlate clinically. 3. There is pericardial fluid or pericardial thickening which is stable to minimally increased from 09/24/2016. 4. There is mild right basilar atelectasis with a very small right pleural effusion which is also new. Dictated by... Jaylin Aragon M.D. THIS IS AN ELECTRONICALLY VERIFIED REPORT Jaylin Aragon M.D. at 10/05/2016 2:31 PM WILIAM/douglas TD: 10/04/2016 13:43 JOB #: [id number] MEDICAL IMAGING REPORT Page 1 of 1 COPY
--- NOTE | ~2016-09-26 | CO ---
Unit #: [id number] #: [id number] Patient: ALIZE NEW [id number] [address] [address] [id number] I MR#: [id number] NAME: ALIZE NEW ROOM: [facility] Age: 56 Sex: F Admission Date: 09/26/2016 : 1960 Attending Physician: Darlene Morillo M.D. Primary Care Physician: Fanny Waite Consultation Date: 10/04/2016 CONSULTATION REPORT REASON FOR CONSULTATION Followup. DISCUSSION Ms. Alize New is a 56-year-old female, seen in CCU-2, bed 8 on 10/04/2016 at [facility]. The patient dressed in hospital attire, lying in a propped up position, receiving oxygen through Oxymizer; flat, sad, dysphoric mood, was seen somewhat tired, drifting up to sleep slowly. The patient reported feeling fine. Denied any suicidal or homicidal ideation. Denied any psychotic symptom. The patient is compliant and cooperative on the unit. Reviewed the patient's labs as well as information from the nursing staff. Vital signs; stable, pulse 104, respirations 13, blood pressure 141/64, oxygen saturation 100%. MENTAL STATUS EXAMINATION General appearance, the patient dressed in hospital attire, lying in a propped up position. Attention span and concentration, poor. Speech, slow. Oriented in self and place. Mood and affect, sad and depressed. Thought process, coherent to circumstantial. Thought content, denied any thoughts of harming self or others, but somewhat guarded. Recent and remote memory, fair to slightly impaired. Language, fair. Fund of knowledge, fair to slightly impaired. Insight and judgment, fair to poor. DIAGNOSIS Psychiatric: Major depressive disorder, recurrent, severe, F33.2. ASSESSMENT/PLAN 1. Supportive psychotherapy and psychoeducation provided to the patient, but the patient unable to comprehend much at this time and seemed somewhat tired, withdrawn. 2. Recommending at this time to cut back on her medication. At this time, advised to discontinue schedule Xanax and changed it to p.r.n. Xanax only. As the patient seemed very tired, advised to discontinue Neurontin and Seroquel at this time to keep the medication minimum as possible. If needed, we will consider at a later date. Please feel free to call if any questions, telephone #[phone]. Dictated by... Kee Knowles/bob Unit #: [id number] #: [id number] Patient: ALIZE NEW TD: 10/04/2016 23:44 JOB #: [id number] CONSULTATION REPORT Page 1 of 1 X Sebas Horne MD X CONSULTATION REPORT
--- NOTE | ~2016-09-26 | CO ---
Unit #: [id number] #: [id number] Patient: ALIZE NEW [id number] [address] [address] [id number] I MR#: [id number] NAME: ALIZE NEW ROOM: [facility] Age: 56 Sex: F Admission Date: 09/26/2016 : 1960 Attending Physician: Darlene Morillo M.D. Primary Care Physician: Fanny Waite Aprn CONSULTATION REPORT REASON FOR CONSULTATION Critical care management. HISTORY OF PRESENT ILLNESS The patient is a 56-year-old female with a past medical history of chronic obstructive pulmonary disease, depression, anxiety, hypertension, gastroesophageal reflux disease, polysubstance abuse. She presented with the complaint of shortness of breath. She was admitted with respiratory failure. She was noted to have a mediastinal mass and underwent CT-guided biopsy that was positive for foe-evmkd-vxfj lung cancer. She developed acute shortness of breath and was transferred to the intensive care unit. She has SVC syndrome. She currently has been undergoing stent placement. I am seeing the patient at the bedside. She does not appear to be in acute distress, mild shortness of breath and diffuse swelling of the face, but airway is protected. PAST MEDICAL HISTORY 1. Hypertension. 2. Anxiety. 3. Depression. 4. Gastroesophageal reflux disease. PAST SURGICAL HISTORY 1. Cholecystectomy. 2. Tonsillectomy. SOCIAL HISTORY Half pack smoker per day. Denies alcohol and drug abuse. FAMILY HISTORY Colon cancer. ALLERGIES Penicillin. CURRENT MEDICATIONS As per MAR. Have been reviewed. REVIEW OF SYSTEMS Positive pallor. Positive facial edema. No cyanosis. No jaundice. The rest is as per history of present illness. The rest of the 12-point review of systems has been reviewed and is negative. PHYSICAL EXAMINATION Unit #: [id number] #: [id number] Patient: ALIZE NEW VITALS: Temperature 98, pulse 67, respiratory rate 12, blood pressure 130/70. HEENT: Pupils equally round and reactive to light and accommodation. NECK: Supple. No jugular venous distension. CHEST: Bilateral air entry. Bilateral mild rhonchi. ABDOMEN: Nontender and soft. Bowel sounds positive. EXTREMITIES: No edema. SKIN: No rashes. No ulcers. LYMPH: No lymphadenopathy. NEUROLOGIC: Awake, alert and oriented. No neurologic deficits. DIAGNOSTIC STUDIES IMAGING: Reviewed. LABORATORY: Reviewed. ASSESSMENT 1. SVC syndrome. 2. Acute hypoxic hypercapnic respiratory failure. 3. Status post treatment for pneumonia. 4. Chronic obstructive pulmonary disease with exacerbation. 5. Obstructive sleep apnea. PLAN Continue BiPAP support. Continue IV steroids, antibiotics, bronchodilator, GI and DVT prophylaxis. The patient is to go for SVC stent placement. Discussed with oncology, radiation oncology and interventional radiology. Will continue to monitor. Please see orders for detailed plan. Thank you very much for this consultation. Dictated by... Kee Centeno/sarah TD: 10/02/2016 07:06 JOB #: [id number] CONSULTATION REPORT Page 1 of 1 X Alta Diaz MD X CONSULTATION REPORT
--- NOTE | ~2016-09-26 | US140 ---
[facility] A Service of [facility] RADIOLOGY TEXT RESULTS PATIENT: ALIZE NEW LOCATION: [facility] 572-01 : [birth year] UNIT #: [id number] AGE: [address]: James Givens MD SEX: F ORDER DR: [id number] [facility] [address] [facility]. [place], [place] [address] [id number] I MR#: [id number] Acc #: [id number] NAME: ALIZE NEW : 1960 SEX: F STUDY DATE/TIME: 09/29/2016 10:56 UNIT: [facility] ROOM: [facility] STUDY DESCRIPTION: US UE Veins Unilat or Ltd Stdy Attending Physician: James Givens M.D. Ordering Physician: Adamaris Steele M.D. Primary Care Physician: Fanny Waite MEDICAL IMAGING REPORT This report is preliminary unless electronic signature is present EXAM Right upper extremity venous ultrasound HISTORY Right upper extremity pain for 4 days. PICC line placed 1 day ago. COMPARISON STUDIES None. FINDINGS The venous structures of the right upper extremity are evaluated with rich scale imaging and color Doppler ultrasound. There is flow and compression at every level. Slow flow is noted in the subclavian vein, internal jugular and axillary vein. There is an enlarged lymph node in the lower right neck measuring least 2 cm in diameter. In the right axilla, there is a 12 mm lymph node. IMPRESSION No venous thrombus is identified, but very slow flow was noted in the internal jugular vein and subclavian vein suggesting a possible SVC narrowing or partial occlusion. It is also noted there is at least 1 or 2 enlarged nodes visible on the lower right neck and axillary region. Consider CT chest with contrast for evaluation. Dictated by... Corbin Bui M.D. THIS IS AN ELECTRONICALLY VERIFIED REPORT Corbin Bui M.D. at 09/29/2016 3:57 PM FEL/ea [facility] A Service of [facility] RADIOLOGY TEXT RESULTS PATIENT: ALIZE NEW [id number] [birth year] UNIT #: [id number] AGE: [address]: James Givens MD SEX: F ORDER DR: TD: 09/29/2016 15:24 JOB #: [id number] MEDICAL IMAGING REPORT Page 1 of 1 COPY
--- NOTE | ~2016-09-26 | CO ---
Unit #: [id number] #: [id number] Patient: ALIZE NEW [id number] [address] [address] [id number] I MR#: [id number] NAME: ALIZE NEW ROOM: 474 Age: 56 Sex: F Admission Date: 09/26/2016 : 1960 Attending Physician: Darlene Morillo M.D. Primary Care Physician: Fanny Waite Consultation Date: 10/12/2016 CONSULTATION REPORT REASON FOR CONSULTATION Followup. DISCUSSION Ms. Magalys Booth is a 56-year-old female, seen in room 474, bed 1 on 10/12/2016. The patient has a terminal illness and hospice is involved. The patient's daughter was in the room. The patient was breathing through Oxymizer, BiPAP was stopped. The patient was in good spirits, pleasant, and cooperative. Denied any thoughts of harming self or others, but somewhat withdrawn, flat, sad, dysphoric, guarded. Vital signs; temperature 98.0, pulse 103, respiratory rate 16, blood pressure 178/76, oxygen saturation 97%. The patient was somewhat confused, but able to recognize her family member. REVIEW OF SYSTEMS Complete review of systems unremarkable. MENTAL STATUS EXAMINATION Vital signs, please see above. General appearance; the patient dressed in hospital attire, lying in a propped up position, receiving oxygen through Oxymizer. Attention span and concentration, poor. Speech, slow. Oriented in self. Mood and affect, labile. Thought process, circumstantial. Thought content, denied any thoughts of harming self or others, but somewhat guarded. Recent and remote memory, fair to slightly impaired. Language, fair. Fund of knowledge, fair to slightly impaired. Insight and judgment, fair to slightly impaired. DIAGNOSIS Psychiatric: Major depressive disorder, recurrent, severe, F33.2. ASSESSMENT/PLAN 1. Supportive psychotherapy and psychoeducation provided to the patient and her family. 2. Educated about benefits and side effects of medication and course and prognosis of illness. 3. Please feel free to call if any questions, telephone #[phone]. Dictated by... Sebas Horne M.D. KATIE/bob TD: 10/12/2016 23:09 Unit #: [id number] #: [id number] Patient: ALIZE NEW JOB #: [id number] CONSULTATION REPORT Page 1 of 1 X Sebas Horne MD CONSULTATION REPORT
[~2016-09-26 06:17] MED LIST changes: -DULOXETINE HCL60 M1 PO; -GABAPENTIN300 M2 PO; -LEXAPRO20 MG PO; -LIPITOR20 MG PO; -LOTREL 10-40 M1 EACH PO; -METFORMIN HCL500 M3 PO; -PROVENTIL INH0.5 ML NEB; -SEROQUEL XR200 MG PO
[2016-09-26 08:21] LABS: BASOPHIL# 0.1 X10e3 (0-0.3); BASOPHIL% 0.6 % (0-2.5); EOSINOPHIL# 0.1 X10e3 (0-0.7); EOSINOPHIL% 0.6 % (0.0-7.0); HEMATOCRIT 40.7 % (35.0-45.0); HEMOGLOBIN 13.2 gm/dL (12.0-16.0); LYMPHOCYTE# 1.8 X10e3 (1.0-3.5); LYMPHOCYTE% 15.5 % (17.0-45.0); MEAN CELL VOLUME 84.3 FL (83-96); MEAN CORPUSCULAR HEMOGLOBIN 27.3 PG (28-34); MEAN CORPUSCULAR HGB CONC 32.3 g/dL (30-36); MEAN PLATELET VOLUME 8.6 FL (6.5-11.5); MONOCYTE# 0.9 X10e3 (0-1.0); MONOCYTE% 7.9 % (3.0-12.0); NEUTROPHIL# 8.6 X10e3 (1.5-7.1); NEUTROPHIL% 75.4 % (40-75); PLATELET COUNT 264 X10e3 (140-420); RED BLOOD COUNT 4.83 X10e (3.90-5.30); WHITE BLOOD COUNT 11.4 X10e3 (4.0-10.5)
[2016-09-26 08:22] LABS: DIFF IND NO
[2016-09-26 08:42] LABS: POC - CKMB 1.6 ng/mL (0.0-7.9); POC - TROPONIN <0.05 ng/mL (<=0.05)
[2016-09-26 08:43] LABS: ALBUMIN SERUM 4.1 g/dL (3.5-5.0); BILIRUBIN, DIRECT 0.1 mg/dL (0.0-0.2); BILIRUBIN,INDIRECT 0.6 mg/dL (0.0-0.9); BILIRUBIN,TOTAL 0.7 mg/dL (0.2-2.0); BUN/CREATININE RATIO 11.42; CALCIUM SERUM 9.8 mg/dL (8.4-10.2); CREATININE SERUM 0.7 mg/dL (0.6-1.4); GLOM FILT RATE Estimated 113.8 mL/min (>60); POTASSIUM 4.2 mmol/L (3.5-5.1); PROTEIN TOTAL SERUM 8.3 g/dL (6.0-8.3)
[2016-09-26 14:09] LABS: CK TOTAL 24 IU/L (26-140)
[2016-09-26] MEDS ORDERED: DULOXETINE HCL60 M1 PO (15:46)
[2016-09-26] MEDS ORDERED: LIPITOR20 MG PO (15:46)
[2016-09-26] MEDS ORDERED: LEXAPRO20 MG PO (15:47)
[2016-09-26] MEDS ORDERED: ALBUTEROL17 GM INH (15:52)
[2016-09-26] MEDS ORDERED: PROVENTIL INH0.5 ML NEB (15:52)
[2016-09-26] MEDS ORDERED: LOTREL 10-40 M1 EACH PO (15:53)
[2016-09-26] MEDS ORDERED: GABAPENTIN300 M2 PO (15:53)
[2016-09-26] MEDS ORDERED: SEROQUEL XR200 MG PO (15:55)
[2016-09-26] MEDS ORDERED: METFORMIN HCL500 M3 PO (15:55)
[2016-09-26 21:11] LABS: CK TOTAL 19 IU/L (26-140)
[2016-09-27 05:38] LABS: HEMATOCRIT 39.4 % (35.0-45.0); HEMOGLOBIN 12.3 gm/dL (12.0-16.0); MEAN CELL VOLUME 85.2 FL (83-96); MEAN CORPUSCULAR HEMOGLOBIN 26.7 PG (28-34); MEAN CORPUSCULAR HGB CONC 31.4 g/dL (30-36); MEAN PLATELET VOLUME 9.1 FL (6.5-11.5); RED BLOOD COUNT 4.62 X10e (3.90-5.30); RED CELL DISTRIBUTION WIDTH 15.3 % (11.0-15.5); WHITE BLOOD COUNT 14.9 X10e3 (4.0-10.5)
[2016-09-27 06:41] LABS: ALBUMIN SERUM 3.8 g/dL (3.5-5.0); BILIRUBIN,TOTAL 0.6 mg/dL (0.2-2.0); CALCIUM SERUM 10.2 mg/dL (8.4-10.2); CREATININE SERUM 0.6 mg/dL (0.6-1.4); GLOM FILT RATE Estimated 119.8 mL/min (>60); POTASSIUM 4.6 mmol/L (3.5-5.1); PROTEIN TOTAL SERUM 7.7 g/dL (6.0-8.3)
[2016-09-27 14:21] LABS: PARTIAL THROMBOPLASTIN TIME 27.1 SECONDS (23.5-31.3); PROTHROMBIN TIME (PATIENT) 10.1 SECONDS (9.6-11.5)
[2016-09-28 05:45] LABS: HEMATOCRIT 39.5 % (35.0-45.0); HEMOGLOBIN 12.4 gm/dL (12.0-16.0); MEAN CELL VOLUME 85.4 FL (83-96); MEAN CORPUSCULAR HEMOGLOBIN 26.8 PG (28-34); MEAN CORPUSCULAR HGB CONC 31.3 g/dL (30-36); MEAN PLATELET VOLUME 9.5 FL (6.5-11.5); RED BLOOD COUNT 4.62 X10e (3.90-5.30); RED CELL DISTRIBUTION WIDTH 15.1 % (11.0-15.5)
[2016-09-28 05:46] LABS: WHITE BLOOD COUNT 24.6 X10e3 (4.0-10.5)
[2016-09-28 06:47] LABS: BUN/CREATININE RATIO 17.14; CALCIUM SERUM 9.9 mg/dL (8.4-10.2); CREATININE SERUM 0.7 mg/dL (0.6-1.4); GLOM FILT RATE Estimated 113.8 mL/min (>60)
[2016-09-29 05:40] LABS: HEMATOCRIT 38.1 % (35.0-45.0); MEAN CELL VOLUME 85.2 FL (83-96); MEAN CORPUSCULAR HEMOGLOBIN 26.8 PG (28-34); MEAN CORPUSCULAR HGB CONC 31.5 g/dL (30-36); MEAN PLATELET VOLUME 9.4 FL (6.5-11.5); RED BLOOD COUNT 4.47 X10e (3.90-5.30); RED CELL DISTRIBUTION WIDTH 14.8 % (11.0-15.5); WHITE BLOOD COUNT 15.6 X10e3 (4.0-10.5)
[2016-09-29 05:50] LABS: PARTIAL THROMBOPLASTIN TIME 26.8 SECONDS (23.5-31.3)
[2016-09-29 06:21] LABS: FERRITIN 51 ng/mL (11-307)
[2016-09-29 06:24] LABS: ALBUMIN SERUM 3.5 g/dL (3.5-5.0); BILIRUBIN,TOTAL 0.7 mg/dL (0.2-2.0); BUN/CREATININE RATIO 15.71; CALCIUM SERUM 9.4 mg/dL (8.4-10.2); CREATININE SERUM 0.7 mg/dL (0.6-1.4); GLOM FILT RATE Estimated 113.8 mL/min (>60); POTASSIUM 4.3 mmol/L (3.5-5.1)
[2016-09-29 10:37] LABS: URINE SOURCE CLEAN CATCH
[2016-09-29 10:44] LABS: URINE APPEARANCE CLEAR; URINE BILIRUBIN NEG (NEG); URINE BLOOD NEG (NEG); URINE COLOR YELLOW; URINE GLUCOSE NEG (NEG); URINE KETONE NEG (NEG); URINE LEUKOCYTE ESTERASE NEG (NEG); URINE NITRATE NEG (NEG); URINE PROTEIN NEG (NEG); URINE SPECIFIC GRAVITY 1.008 (1.003-1.035); URINE UROBILINOGEN 0.2 MG/DL (NEG)
[2016-09-29 10:53] LABS: CULTURE INDICATED? NO
[2016-09-29 10:55] LABS: AMPHETAMINE NEG (NEG); BARBITURATES NEG (NEG); BENZODIAZEPINES NEG (NEG); COCAINE NEG (NEG); MARIJUANA NEG (NEG); OPIATES NEG (NEG); TRICYCLIC ANTIDEPRESSANTS POS (NEG); U METHADONE NEG (NEG)
[2016-09-30 07:59] LABS: ALBUMIN SERUM 4.1 g/dL (3.5-5.0); BILIRUBIN,TOTAL 0.6 mg/dL (0.2-2.0); BUN/CREATININE RATIO 15.71; CALCIUM SERUM 9.7 mg/dL (8.4-10.2); CREATININE SERUM 0.7 mg/dL (0.6-1.4); GLOM FILT RATE Estimated 113.8 mL/min (>60); POTASSIUM 4.1 mmol/L (3.5-5.1); PROTEIN TOTAL SERUM 8.3 g/dL (6.0-8.3)
[2016-09-30 08:30] LABS: HEMATOCRIT 38.6 % (35.0-45.0); HEMOGLOBIN 12.2 gm/dL (12.0-16.0); MEAN CORPUSCULAR HEMOGLOBIN 27.2 PG (28-34); MEAN CORPUSCULAR HGB CONC 31.6 g/dL (30-36); RED BLOOD COUNT 4.49 X10e (3.90-5.30)
[2016-09-30 08:32] LABS: WHITE BLOOD COUNT 24.9 X10e3 (4.0-10.5)
[2016-10-01 07:37] LABS: HEMATOCRIT 40.4 % (35.0-45.0); HEMOGLOBIN 12.7 gm/dL (12.0-16.0); MEAN CELL VOLUME 86.4 FL (83-96); MEAN CORPUSCULAR HGB CONC 31.3 g/dL (30-36); RED BLOOD COUNT 4.68 X10e (3.90-5.30); RED CELL DISTRIBUTION WIDTH 14.9 % (11.0-15.5); WHITE BLOOD COUNT 22.7 X10e3 (4.0-10.5)
[2016-10-01 07:46] LABS: PARTIAL THROMBOPLASTIN TIME 26.4 SECONDS (23.5-31.3); PROTHROMBIN TIME (PATIENT) 10.2 SECONDS (9.6-11.5)
[2016-10-01 08:32] LABS: BILIRUBIN,TOTAL 0.5 mg/dL (0.2-2.0); BUN/CREATININE RATIO 26.66; CALCIUM SERUM 9.8 mg/dL (8.4-10.2); CREATININE SERUM 0.6 mg/dL (0.6-1.4); GLOM FILT RATE Estimated 119.8 mL/min (>60); POTASSIUM 4.3 mmol/L (3.5-5.1); PROTEIN TOTAL SERUM 7.8 g/dL (6.0-8.3)
[2016-10-01 15:16] LABS: ARTERIAL BLOOD GAS pH 7.318 (7.350-7.450)
[2016-10-01 15:17] LABS: ARTERIAL BLOOD GAS HCO3 38.1 mmol/L; ARTERIAL BLOOD GAS PCO2 74.4 mmHg (35.0-45.0); ARTERIAL BLOOD GAS PO2 60.8 mmHg (80.0-100)
[2016-10-01 15:18] LABS: ARTERIAL BLD GAS O2 SATURATION 89.3 % (90.0-100.0); ARTERIAL BLOOD GAS CARBOXY HB 0.7 %sat (0.0-9.0)
[2016-10-01 15:19] LABS: ARTERIAL BLOOD GAS ALLEN TEST NORMAL; ARTERIAL BLOOD GAS ART SITE LEFT BRACHIAL; ARTERIAL BLOOD GAS DELIVERY NASAL CANNULA; ARTERIAL DRAW? YES
[2016-10-01 18:44] LABS: ARTERIAL BLOOD GAS pH 7.291 (7.350-7.450)
[2016-10-01 18:45] LABS: ARTERIAL BLOOD GAS PCO2 80.3 mmHg (35.0-45.0); ARTERIAL BLOOD GAS PO2 49.4 mmHg (80.0-100)
[2016-10-01 18:46] LABS: ARTERIAL BLOOD GAS ALLEN TEST NORMAL; ARTERIAL BLOOD GAS ART SITE LEFT RADIAL; ARTERIAL BLOOD GAS CARBOXY HB 0.9 %sat (0.0-9.0); ARTERIAL BLOOD GAS DELIVERY NASAL CANNULA; ARTERIAL BLOOD GAS HCO3 38.6 mmol/L; ARTERIAL BLOOD GAS MET HB 0.8 %sat (0.0-2.0); ARTERIAL DRAW? YES
[2016-10-01 20:57] LABS: ARTERIAL BLOOD GAS pH 7.345 (7.350-7.450)
[2016-10-01 20:59] LABS: ARTERIAL BLD GAS O2 SATURATION 89.3 % (90.0-100.0); ARTERIAL BLOOD GAS CARBOXY HB 0.8 %sat (0.0-9.0); ARTERIAL BLOOD GAS MET HB 0.9 %sat (0.0-2.0); ARTERIAL BLOOD GAS PCO2 73.3 mmHg (35.0-45.0); ARTERIAL BLOOD GAS PO2 59.8 mmHg (80.0-100)
[2016-10-01 21:00] LABS: ARTERIAL BLOOD GAS ALLEN TEST NORMAL; ARTERIAL BLOOD GAS ART SITE LEFT RADIAL; ARTERIAL BLOOD GAS DELIVERY BIPAP 14/6 R20; ARTERIAL DRAW? YES
[2016-10-02 05:23] LABS: BASOPHIL# 0.1 X10e3 (0-0.3); BASOPHIL% 0.2 % (0-2.5); HEMATOCRIT 39.1 % (35.0-45.0); HEMOGLOBIN 12.3 gm/dL (12.0-16.0); LYMPHOCYTE# 0.6 X10e3 (1.0-3.5); LYMPHOCYTE% 1.9 % (17.0-45.0); MEAN CELL VOLUME 85.3 FL (83-96); MEAN CORPUSCULAR HEMOGLOBIN 26.8 PG (28-34); MEAN CORPUSCULAR HGB CONC 31.4 g/dL (30-36); MEAN PLATELET VOLUME 9.5 FL (6.5-11.5); MONOCYTE# 1.9 X10e3 (0-1.0); MONOCYTE% 5.8 % (3.0-12.0); NEUTROPHIL# 30.2 X10e3 (1.5-7.1); NEUTROPHIL% 92.1 % (40-75); RED BLOOD COUNT 4.59 X10e (3.90-5.30); RED CELL DISTRIBUTION WIDTH 14.8 % (11.0-15.5); WHITE BLOOD COUNT 32.8 X10e3 (4.0-10.5)
[2016-10-02 05:24] LABS: DIFF IND YES
[2016-10-02 05:46] LABS: ARTERIAL BLOOD GAS HCO3 38.5 mmol/L; ARTERIAL BLOOD GAS PCO2 64.4 mmHg (35.0-45.0); ARTERIAL BLOOD GAS PO2 95.8 mmHg (80.0-100); ARTERIAL BLOOD GAS pH 7.385 (7.350-7.450)
[2016-10-02 05:47] LABS: ARTERIAL BLD GAS O2 SATURATION 97.4 % (90.0-100.0); ARTERIAL BLOOD GAS ALLEN TEST NORMAL; ARTERIAL BLOOD GAS ART SITE LEFT RADIAL; ARTERIAL BLOOD GAS CARBOXY HB 0.5 %sat (0.0-9.0); ARTERIAL BLOOD GAS DELIVERY BIPAP AVAPS 500 R20; ARTERIAL BLOOD GAS MET HB 0.9 %sat (0.0-2.0); ARTERIAL DRAW? YES
[2016-10-02 05:58] LABS: ALBUMIN SERUM 3.5 g/dL (3.5-5.0); BILIRUBIN,TOTAL 0.8 mg/dL (0.2-2.0); CALCIUM SERUM 9.4 mg/dL (8.4-10.2); CREATININE SERUM 0.5 mg/dL (0.6-1.4); GLOM FILT RATE Estimated 127.2 mL/min (>60); POTASSIUM 4.3 mmol/L (3.5-5.1); PROTEIN TOTAL SERUM 6.8 g/dL (6.0-8.3)
[2016-10-02 07:34] LABS: PLATELET ESTIMATE NORMAL (NORMAL); TARGET CELLS SL; VACUOLIZATION SL
[2016-10-02 07:35] LABS: PLATELET COUNT 180 X10e3 (140-420)
[2016-10-03 06:19] LABS: BASOPHIL# 0.1 X10e3 (0-0.3); BASOPHIL% 0.2 % (0-2.5); HEMOGLOBIN 12.6 gm/dL (12.0-16.0); LYMPHOCYTE# 0.7 X10e3 (1.0-3.5); LYMPHOCYTE% 1.7 % (17.0-45.0); MEAN CELL VOLUME 86.6 FL (83-96); MEAN CORPUSCULAR HEMOGLOBIN 26.7 PG (28-34); MEAN CORPUSCULAR HGB CONC 30.9 g/dL (30-36); MEAN PLATELET VOLUME 9.4 FL (6.5-11.5); MONOCYTE# 1.2 X10e3 (0-1.0); MONOCYTE% 2.8 % (3.0-12.0); NEUTROPHIL# 41.1 X10e3 (1.5-7.1); NEUTROPHIL% 95.3 % (40-75); PLATELET COUNT 124 X10e3 (140-420); RED BLOOD COUNT 4.73 X10e (3.90-5.30); RED CELL DISTRIBUTION WIDTH 14.9 % (11.0-15.5); WHITE BLOOD COUNT 43.1 X10e3 (4.0-10.5)
[2016-10-03 06:20] LABS: DIFF IND NO
[2016-10-03 11:15] LABS: BUN/CREATININE RATIO 23.33; CALCIUM SERUM 9.6 mg/dL (8.4-10.2); CREATININE SERUM 0.6 mg/dL (0.6-1.4); GLOM FILT RATE Estimated 119.8 mL/min (>60); POTASSIUM 4.7 mmol/L (3.5-5.1)
[2016-10-04 04:08] LABS: BASOPHIL# 0.1 X10e3 (0-0.3); BASOPHIL% 0.2 % (0-2.5); HEMATOCRIT 36.4 % (35.0-45.0); HEMOGLOBIN 11.4 gm/dL (12.0-16.0); LYMPHOCYTE# 0.4 X10e3 (1.0-3.5); LYMPHOCYTE% 1.6 % (17.0-45.0); MEAN CELL VOLUME 85.7 FL (83-96); MEAN CORPUSCULAR HEMOGLOBIN 26.8 PG (28-34); MEAN CORPUSCULAR HGB CONC 31.2 g/dL (30-36); MEAN PLATELET VOLUME 9.2 FL (6.5-11.5); MONOCYTE# 1.2 X10e3 (0-1.0); MONOCYTE% 4.7 % (3.0-12.0); NEUTROPHIL# 23.5 X10e3 (1.5-7.1); NEUTROPHIL% 93.5 % (40-75); PLATELET COUNT 155 X10e3 (140-420); RED BLOOD COUNT 4.25 X10e (3.90-5.30); RED CELL DISTRIBUTION WIDTH 14.8 % (11.0-15.5); WHITE BLOOD COUNT 25.2 X10e3 (4.0-10.5)
[2016-10-04 04:09] LABS: DIFF IND NO
[2016-10-04 04:21] LABS: INR 1.1; PARTIAL THROMBOPLASTIN TIME 34.7 SECONDS (23.5-31.3); PROTHROMBIN TIME (PATIENT) 11.7 SECONDS (9.6-11.5)
[2016-10-04 04:25] LABS: CALCIUM SERUM 9.2 mg/dL (8.4-10.2); CREATININE SERUM 0.5 mg/dL (0.6-1.4); GLOM FILT RATE Estimated 127.2 mL/min (>60); POTASSIUM 4.3 mmol/L (3.5-5.1)
[2016-10-05 04:21] LABS: BASOPHIL# 0.1 X10e3 (0-0.3); BASOPHIL% 0.2 % (0-2.5); HEMATOCRIT 38.4 % (35.0-45.0); HEMOGLOBIN 12.1 gm/dL (12.0-16.0); LYMPHOCYTE# 0.9 X10e3 (1.0-3.5); LYMPHOCYTE% 3.1 % (17.0-45.0); MEAN CELL VOLUME 85.8 FL (83-96); MEAN CORPUSCULAR HGB CONC 31.4 g/dL (30-36); MEAN PLATELET VOLUME 9.6 FL (6.5-11.5); MONOCYTE# 1.2 X10e3 (0-1.0); MONOCYTE% 4.2 % (3.0-12.0); NEUTROPHIL# 26.2 X10e3 (1.5-7.1); NEUTROPHIL% 92.5 % (40-75); PLATELET COUNT 184 X10e3 (140-420); RED BLOOD COUNT 4.48 X10e (3.90-5.30); RED CELL DISTRIBUTION WIDTH 14.5 % (11.0-15.5); WHITE BLOOD COUNT 28.3 X10e3 (4.0-10.5)
[2016-10-05 04:22] LABS: DIFF IND NO
[2016-10-05 04:41] LABS: ARTERIAL BLOOD GAS pH 7.345 (7.350-7.450)
[2016-10-05 04:43] LABS: ARTERIAL BLD GAS O2 SATURATION 94.1 % (90.0-100.0); ARTERIAL BLOOD GAS ALLEN TEST NORMAL; ARTERIAL BLOOD GAS ART SITE LEFT RADIAL; ARTERIAL BLOOD GAS CARBOXY HB 0.6 %sat (0.0-9.0); ARTERIAL BLOOD GAS DELIVERY OXYMIZER; ARTERIAL BLOOD GAS HCO3 38.9 mmol/L; ARTERIAL BLOOD GAS MET HB 0.9 %sat (0.0-2.0); ARTERIAL BLOOD GAS PCO2 71.4 mmHg (35.0-45.0); ARTERIAL DRAW? YES
[2016-10-05 04:47] LABS: ALBUMIN SERUM 3.7 g/dL (3.5-5.0); BILIRUBIN,TOTAL 1.3 mg/dL (0.2-2.0); BUN/CREATININE RATIO 37.5; CALCIUM SERUM 9.5 mg/dL (8.4-10.2); CREATININE SERUM 0.4 mg/dL (0.6-1.4); GLOM FILT RATE Estimated 136.9 mL/min (>60); POTASSIUM 3.8 mmol/L (3.5-5.1)
[2016-10-05 07:54] LABS: ARTERIAL BLD GAS O2 SATURATION 96.1 % (90.0-100.0); ARTERIAL BLOOD GAS CARBOXY HB 0.4 %sat (0.0-9.0); ARTERIAL BLOOD GAS HCO3 39.1 mmol/L; ARTERIAL BLOOD GAS MET HB 0.9 %sat (0.0-2.0); ARTERIAL BLOOD GAS PO2 86.2 mmHg (80.0-100); ARTERIAL BLOOD GAS pH 7.415 (7.350-7.450)
[2016-10-05 07:55] LABS: ARTERIAL BLOOD GAS ART SITE LEFT BRACHIAL; ARTERIAL BLOOD GAS DELIVERY BIPAP; ARTERIAL BLOOD GAS VENT MODE AVAPS; ARTERIAL DRAW? YES
[2016-10-05 15:09] LABS: HEPARIN INDUCED PLT AB Negative (Negative)
[2016-10-06 05:02] LABS: BASOPHIL% 0.1 % (0-2.5); HEMATOCRIT 34.5 % (35.0-45.0); HEMOGLOBIN 10.8 gm/dL (12.0-16.0); LYMPHOCYTE# 0.7 X10e3 (1.0-3.5); LYMPHOCYTE% 3.2 % (17.0-45.0); MEAN CORPUSCULAR HEMOGLOBIN 26.6 PG (28-34); MEAN CORPUSCULAR HGB CONC 31.3 g/dL (30-36); MEAN PLATELET VOLUME 9.5 FL (6.5-11.5); MONOCYTE# 0.9 X10e3 (0-1.0); MONOCYTE% 3.8 % (3.0-12.0); NEUTROPHIL# 21.5 X10e3 (1.5-7.1); NEUTROPHIL% 92.9 % (40-75); PLATELET COUNT 147 X10e3 (140-420); RED BLOOD COUNT 4.06 X10e (3.90-5.30); RED CELL DISTRIBUTION WIDTH 14.5 % (11.0-15.5); WHITE BLOOD COUNT 23.1 X10e3 (4.0-10.5)
[2016-10-06 05:03] LABS: DIFF IND YES
[2016-10-06 05:12] LABS: ARTERIAL BLOOD GAS pH 7.325 (7.350-7.450)
[2016-10-06 05:13] LABS: ARTERIAL BLD GAS O2 SATURATION 94.3 % (90.0-100.0); ARTERIAL BLOOD GAS ALLEN TEST NORMAL; ARTERIAL BLOOD GAS ART SITE LEFT RADIAL; ARTERIAL BLOOD GAS CARBOXY HB 0.7 %sat (0.0-9.0); ARTERIAL BLOOD GAS DELIVERY OXYMIZER; ARTERIAL BLOOD GAS HCO3 38.7 mmol/L; ARTERIAL BLOOD GAS MET HB 0.4 %sat (0.0-2.0); ARTERIAL BLOOD GAS PCO2 74.2 mmHg (35.0-45.0); ARTERIAL BLOOD GAS PO2 77.7 mmHg (80.0-100); ARTERIAL DRAW? YES
[2016-10-06 05:22] LABS: HYPOCHROMIA MOD; PLATELET ESTIMATE DECREASED (NORMAL)
[2016-10-06 05:36] LABS: ALBUMIN SERUM 3.2 g/dL (3.5-5.0); BILIRUBIN,TOTAL 0.9 mg/dL (0.2-2.0); CALCIUM SERUM 8.7 mg/dL (8.4-10.2); CREATININE SERUM 0.4 mg/dL (0.6-1.4); GLOM FILT RATE Estimated 136.9 mL/min (>60); POTASSIUM 4.3 mmol/L (3.5-5.1); PROTEIN TOTAL SERUM 6.3 g/dL (6.0-8.3)
[2016-10-07 05:06] LABS: BASOPHIL% 0.1 % (0-2.5); HEMATOCRIT 34.7 % (35.0-45.0); HEMOGLOBIN 10.7 gm/dL (12.0-16.0); LYMPHOCYTE# 0.5 X10e3 (1.0-3.5); LYMPHOCYTE% 2.3 % (17.0-45.0); MEAN CELL VOLUME 85.9 FL (83-96); MEAN CORPUSCULAR HEMOGLOBIN 26.6 PG (28-34); MEAN PLATELET VOLUME 9.4 FL (6.5-11.5); MONOCYTE# 0.8 X10e3 (0-1.0); MONOCYTE% 3.4 % (3.0-12.0); NEUTROPHIL# 21.3 X10e3 (1.5-7.1); NEUTROPHIL% 94.2 % (40-75); PLATELET COUNT 160 X10e3 (140-420); RED BLOOD COUNT 4.03 X10e (3.90-5.30); RED CELL DISTRIBUTION WIDTH 14.1 % (11.0-15.5); WHITE BLOOD COUNT 22.6 X10e3 (4.0-10.5)
[2016-10-07 05:12] LABS: DIFF IND NO
[2016-10-07 05:54] LABS: BILIRUBIN,TOTAL 0.5 mg/dL (0.2-2.0); BUN/CREATININE RATIO 37.5; CALCIUM SERUM 8.8 mg/dL (8.4-10.2); CREATININE SERUM 0.4 mg/dL (0.6-1.4); GLOM FILT RATE Estimated 136.9 mL/min (>60); POTASSIUM 4.3 mmol/L (3.5-5.1); PROTEIN TOTAL SERUM 5.6 g/dL (6.0-8.3)
[2016-10-07 16:09] LABS: ARTERIAL BLD GAS O2 SATURATION 85.5 % (90.0-100.0); ARTERIAL BLOOD GAS HCO3 41.9 mmol/L; ARTERIAL BLOOD GAS PCO2 63.1 mmHg (35.0-45.0); ARTERIAL BLOOD GAS PO2 49.5 mmHg (80.0-100)
[2016-10-07 16:10] LABS: ARTERIAL BLOOD GAS ART SITE RIGHT BRACHIAL; ARTERIAL BLOOD GAS CARBOXY HB 0.4 %sat (0.0-9.0); ARTERIAL BLOOD GAS DELIVERY BIPAP; ARTERIAL BLOOD GAS VENT MODE AVAPS; ARTERIAL DRAW? YES
[2016-10-08 04:14] LABS: ARTERIAL BLOOD GAS pH 7.398 (7.350-7.450)
[2016-10-08 04:15] LABS: ARTERIAL BLD GAS O2 SATURATION 99.3 % (90.0-100.0); ARTERIAL BLOOD GAS ALLEN TEST NORMAL; ARTERIAL BLOOD GAS ART SITE LEFT RADIAL; ARTERIAL BLOOD GAS CARBOXY HB 0.1 %sat (0.0-9.0); ARTERIAL BLOOD GAS HCO3 51.2 mmol/L; ARTERIAL BLOOD GAS MET HB 0.7 %sat (0.0-2.0); ARTERIAL BLOOD GAS PCO2 83.1 mmHg (35.0-45.0); ARTERIAL DRAW? YES
[2016-10-08 04:16] LABS: ARTERIAL BLOOD GAS DELIVERY BIPAP AVAPS 500 8
[2016-10-08 05:22] LABS: BASOPHIL# 0.1 X10e3 (0-0.3); BASOPHIL% 0.3 % (0-2.5); HEMATOCRIT 35.5 % (35.0-45.0); HEMOGLOBIN 11.1 gm/dL (12.0-16.0); LYMPHOCYTE# 0.6 X10e3 (1.0-3.5); LYMPHOCYTE% 1.8 % (17.0-45.0); MEAN CELL VOLUME 85.8 FL (83-96); MEAN CORPUSCULAR HEMOGLOBIN 26.9 PG (28-34); MEAN CORPUSCULAR HGB CONC 31.3 g/dL (30-36); MEAN PLATELET VOLUME 10.2 FL (6.5-11.5); MONOCYTE# 0.9 X10e3 (0-1.0); MONOCYTE% 2.7 % (3.0-12.0); NEUTROPHIL# 30.8 X10e3 (1.5-7.1); NEUTROPHIL% 95.2 % (40-75); PLATELET COUNT 153 X10e3 (140-420); RED BLOOD COUNT 4.13 X10e (3.90-5.30); RED CELL DISTRIBUTION WIDTH 14.3 % (11.0-15.5); WHITE BLOOD COUNT 32.3 X10e3 (4.0-10.5)
[2016-10-08 05:26] LABS: DIFF IND NO
[2016-10-08 05:50] LABS: ALBUMIN SERUM 2.9 g/dL (3.5-5.0); BILIRUBIN,TOTAL 0.7 mg/dL (0.2-2.0); CALCIUM SERUM 8.7 mg/dL (8.4-10.2); CREATININE SERUM 0.4 mg/dL (0.6-1.4); GLOM FILT RATE Estimated 136.9 mL/min (>60); MAGNESIUM 1.9 mg/dL (1.6-3.0); PHOSPHOROUS 3.4 mg/dL (2.5-4.6); POTASSIUM 4.2 mmol/L (3.5-5.1); PROTEIN TOTAL SERUM 5.7 g/dL (6.0-8.3)
[2016-10-08 07:43] LABS: ARTERIAL BLD GAS O2 SATURATION 99.9 % (90.0-100.0); ARTERIAL BLOOD GAS ALLEN TEST NORMAL; ARTERIAL BLOOD GAS ART SITE LEFT RADIAL; ARTERIAL BLOOD GAS CARBOXY HB 0.5 %sat (0.0-9.0); ARTERIAL BLOOD GAS DELIVERY BIPAP; ARTERIAL BLOOD GAS PCO2 63.1 mmHg (35.0-45.0); ARTERIAL BLOOD GAS VENT MODE AVAPS; ARTERIAL DRAW? YES
== END 2016-10-13 17:48 | DRG 981 ==
LOC: CED 06:17 → CEDOF 08:40 → C5C 08:40 → CED 09:24 → CEDOF 09:24 → CED 21:45 → CEDOF 21:45 → C5C 21:48 → CEDOF 21:48 → C5C 09-27 07:16 → CICCU2 10-01 05:15 → C4C 10-08 16:51
PROVIDERS: Family Medicine; Internal Medicine; Internal Medicine Cardiovascular Disease; Internal Medicine Hematology; Internal Medicine Hematology & Oncology; Physician Assistant
PROC: 05HD33Z Insertion of Infusion Device into Right Cephalic Vein, Percutaneous Approach (ICD-10-PCS; 2016-09-28)
PROC: B54MZZA Ultrasonography of Right Upper Extremity Veins, Guidance (ICD-10-PCS; 2016-09-28)
PROC: 07B13ZX Excision of Right Neck Lymphatic, Percutaneous Approach, Diagnostic (ICD-10-PCS; 2016-09-29)
PROC: 05HF33Z Insertion of Infusion Device into Left Cephalic Vein, Percutaneous Approach (ICD-10-PCS; 2016-09-29)
PROC: B54NZZA Ultrasonography of Left Upper Extremity Veins, Guidance (ICD-10-PCS; 2016-09-29)
PROC: 027V3DZ Dilation of Superior Vena Cava with Intraluminal Device, Percutaneous Approach (ICD-10-PCS; principal; 2016-10-01)
PROC: B518YZZ Fluoroscopy of Superior Vena Cava using Other Contrast (ICD-10-PCS; 2016-10-01)
PROC: 0W9930Z Drainage of Right Pleural Cavity with Drainage Device, Percutaneous Approach (ICD-10-PCS; 2016-10-05)
DX: C34.11 Malignant neoplasm of upper lobe, right bronchus or lung (principal); J96.01 Acute respiratory failure with hypoxia; J18.9 Pneumonia, unspecified organism; J96.02 Acute respiratory failure with hypercapnia; F33.2 Major depressive disorder, recurrent severe without psychotic features; F05 Delirium due to known physiological condition; C7B.8 Other secondary neuroendocrine tumors; I27.2 Other secondary pulmonary hypertension; J44.1 Chronic obstructive pulmonary disease with (acute) exacerbation; J93.9 Pneumothorax, unspecified; I87.1 Compression of vein; F17.210 Nicotine dependence, cigarettes, uncomplicated; F41.9 Anxiety disorder, unspecified; I10 Essential (primary) hypertension; I25.2 Old myocardial infarction; H10.9 Unspecified conjunctivitis; R59.1 Generalized enlarged lymph nodes; K25.9 Gastric ulcer, unspecified as acute or chronic, without hemorrhage or perforation; Z66 Do not resuscitate; G47.33 Obstructive sleep apnea (adult) (pediatric); K21.9 Gastro-esophageal reflux disease without esophagitis; Z81.1 Family history of alcohol abuse and dependence; Z80.0 Family history of malignant neoplasm of digestive organs; Z82.49 Family history of ischemic heart disease and other diseases of the circulatory system; Z90.49 Acquired absence of other specified parts of digestive tract; Z88.0 Allergy status to penicillin; Z51.5 Encounter for palliative care; D64.9 Anemia, unspecified
CPT/HCPCS: 36415; 36600; 70460; 70491; 71010; 71250; 74177; 75827; 76942; 80048; 80053; 80076; 80202; 80307; 81003; 82308; 82465; 82550; 82553; 82607; 82728; 82803; 82947; 83540; 83550; 83605; 83735; 83880; 84100; 84484; 85025; 85027; 85384; 85610; 85730; 86022; 87040; 88305; 93005; 93971; 94640; 94660; 94760; 96374; 99285; C1725; C1769; C1876; C1887; C1894; J0360; J0461; J0692; J0883; J1644; J1650; J1956; J2060; J2250; J2270; J2405; J2920; J2930; J3010; J3370; Q9967